=== PATIENT | female | born 1955 | race Caucasian/White ===

== ENCOUNTER 2023-09-21 13:45 | Outpatient (RCR) | payer MEDICARE, OTHER, SELFPAY ==
[2023-09-07 13:05] VITALS: BP 151/63; PULSE 63; RESP 18; TEMP 36.3; BMI 30.2
--- NOTE | 2023-09-08 09:27 | WC ---
PHOTO 09/07/23 (I) LEFT MEDIAL ANKLE
--- NOTE | 2023-09-08 19:37 | HP.PCM_ITS ---
History of Present Illness Date of Service: 09/07/23 Chief Complaint: Open ulceration of the left medial supra-malleolar area History of Wound: This is a 68-year-old female who presented with an ulceration of the left medial supra-malleolar area. Ulceration has been present since April 12, 2023. The ulceration occurred spontaneously, with no history of trauma. The patient has not previously had an ulceration at this site in the past. She was seen and evaluated by [facility], where an Unna boot was placed for a total of 1 week. With no significant improvement was appreciated, the patient was referred for further evaluation at the [facility]. The patient denies a history of deep vein thrombosis, though has a history of pulmonary embolism in 2017. She was treated by means of systemic anticoagulation at that time, though is not curr ently anticoagulated. Patient is not active, though she is ambulatory. She spends a good portion of each day sitting idlely. She claims to sleep on a flat mattress at night. The patient is of relatively normal body habitus, with a BMI of 30.2. The patient denies a history of diabetes mellitus, congestive heart failure, myocardial infarction, cerebrovascular accident, pulmonary disease, renal disease, and thyroid disease. [facility] Medical History Chronic venous insufficiency of lower extremity Venous stasis ulcer of ankle with fat layer exposed without varicose veins Mejia phlebectatica paraplantaris Hyperpigmentation Cardiac arrhythmia Home Medications ?Medication ?Instructions ?Recorded ?Last Taken ?Type metoprolol tartrate 25 mg tablet 25 mg PO BID 09/07/23 Unknown History multivit with min-folic acid PO 09/07/23 Unknown History Allergy/AdvReac Type Severity Reaction Status Date / Time povidone-iodine (From Allergy Other Verified 09/07/23 13:03 Betadine) Sulfa (Sulfonamide Allergy Other Verified 09/07/23 13:03 Antibiotics) Surgical History History of cataract surgery History of total left knee replacement History of repair of hiatal hernia Social History Smoking Status: Never smoker Vital Signs Vital Signs Vital Signs: Weight Weight: 165 lb Body Mass Index (BMI) 30.2 Physical Exam Const alert, oriented x3, no apparent distress, average body habitus and well nourished Constitutional Narrative: The patient's BMI is 30.2 General Appearance: cooperative, comfortable, well kempt and well developed Orientation / Consciousness: awake, oriented to person, oriented to place and oriented to time HEENT normocephalic and head/scalp atraumatic Head and Scalp: normal to inspection, normocephalic and atraumatic Face and Sinus: normal facial exam Nose: external nose normal External Ear: external ears normal Eyes EOMs intact bilaterally and conjunctivae normal General Eye: normal appearance of both eyes Neck full ROM Resp normal respiratory effort, normal air movement, no retractions and no use of accessory muscles Effort and Inspection: able to speak in complete sentences Extremity no calf tenderness General Extremity: Negative for clubbing or cyanosis Skin Wound Narrative: An ulceration is noted in the left medial supra-malleolar area. The ulceration is full-thickness in nature, with extension into the subcutaneous tissue. There is no sign of infection or cellulitis. Dimensions are documented elsewhere. The ulcer bed demonstrates predominantly pink and healthy granulation tissue. Hemosiderin staining and lipodermatosclerosis are noted bilaterally in the medial supra-malleolar areas. Mejia phlebectatica is noted bilaterally as well at ankle level. Neuro oriented x3, CN's II-XII intact bilaterally, moves all extremities, no focal motor deficits and no sensory deficits noted Sensorium / Orientation: awake, alert, oriented to person, oriented to place, oriented to time and orientation impaired Psych Appearance: grossly normal and appropriate Attitude: calm Activity / Motor Behavior: appropriate eye contact Speech: normal speech Mood & Affect: euthymic mood Thought Process: normal thought process Thought Content: normal thought content Attention / Concentration: attention grossly intact Debridement Note Debridement Note Wound debrided: Left medial supra-malleolar ulceration Laterality: Left Type of Debridement: Excisional debridement Anesthesia Used: 5% Lidocaine Gel Depth: Down to and including healthy tissue and in the subcutaneous layer Percentage of wound debrided: 100 Instrument Used: 5mm curette Tissue Removed: Bioburden and nonviable tissue Severity: Fat Layer Exposed Amount of bleeding with debridement: Mild Bleeding Controlled with: Compression and gauze Patient tolerated procedure: Patient tolerated procedure well Post-Debridement Measurements and Additional Note: Post-Debridement Measurements/Treatment WC - Nurse 1 - General Ulcer Assessment Start: 09/07/23 13:05 Freq: Status: Active Protocol: LYNETTE Activity Type Activity Date Activity User E-sign Co-sign Detail Recorded Client Recorded Date Recorded By Document 09/07/23 13:05 KW ; 09/07/23 13:14 KW 09/07/23 13:05 WC - Today's Visit Information Type of service Initial Visit Arrival Mode Ambulatory Accompanied by SISTER Patient Identification Verified (Name & Yes ) Height and Weight Height 5 ft 2 in Weight 165 lb Weight in Pounds 165.0 lbs Weight Measurement Method Estimated by Patient Body Mass Index (BMI) 30.2 BMI Classification Obese BSA - Michael 1.76 Vital Signs Temperature (97.8 F-99.1 F) 97.4 F L Temperature Source Temporal Pulse Rate (60-100) 63 Pulse Location Monitor Respiratory Rate (12-18) 18 Respiratory rate source Observation Oxygen Delivery Method Room Air Blood Pressure (90/60-120/80) 151/63 H Blood Pressure Mean 92 Source Monitor Position Semi-Fowlers Blood Pressure Location Left Arm History Since Last Visit- (Skip if this is Patient's initial visit) Left Footwear Regular Shoe Right Footwear Regular Shoe Pain Scale: 0-10 Numeric Is Patient Pain Free? Yes Lower Extremity Assessment/ Foot Assessment/ Toe Nail Assessment Right -Posterior Tibial Palpable Yes -Posterior Tibial Doppler Multiphasic -Dorsalis Pedis Palpable Yes -Dorsalis Pedis Doppler Multiphasic -Thick No -Discolored No -Deformed Yes Left -Posterior Tibial Palpable Yes -Posterior Tibial Doppler Multiphasic -Dorsalis Pedis Palpable Yes -Dorsalis Pedis Doppler Multiphasic -Thick No -Discolored No -Deformed Yes Communication Assessment Preferred language [place] Veterinary Technician Required No Able to Read Yes Able to Write Yes Communication Tools None Caregiver Communication Skills No Impairment Impairment Right Hearing Abillity Normal Left Hearing Abillity Normal Visual Assistive Devices Glasses Teaching Assessment Preferences Verbal,Written, Demonstration Barriers to Learning None Readiness To Learn Excellent Willingness to Engage in Self Management High Activies Readiness to Engage in Self Management High Activities Anxiety Level Calm Cooperation Cooperative Perception Coherent Interest in Health Problem Asks Questions Education Importance Acknowledges Need Does Patient Smoke tobacco or other No substances Smoking Status Never smoker Is Patient Diabetic No Functional Assessment Recent Decline in Ability to Perform Denies Any Declines Culture/Pentecostalism/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 Manager Embalmer Funeral Director to contact place of caodaism No WC - Nurse 1 - General Ulcer Measurement Start: 09/07/23 13:05 Freq: Status: Active Protocol: Activity Type Activity Date Activity User E-sign Co-sign Detail Recorded Client Recorded Date Recorded By Document 09/07/23 13:05 KW ; 09/07/23 13:14 KW 09/07/23 13:05 Wound Center Nurse 1 #1 LT MED ANKLE -Current Size (cm) - Length 0.5 -Current Size (cm) - Width 0.3 -Current Size (cm) - Depth 0.1 -Total Square Cm 0.15 -Date of Last Picture (Recall this 09/07/23 field) -Exudate Amt Small -Exudate Type Serosanguineous -Wound Margin Distinct, Outline Attached -Granulation Amt Large (67-100%) -Granulation Quality Red -Texture (Glenys-wound Skin Appearance) Assessed -Moisture (Glenys-wound Skin Appearance) Assessed -Color (Glenys-wound Skin Appearance) Assessed -Temperature (Glenys-wound Skin No Abnormality Appearance) (Pt Warm) -Ulcer Cleansing Rinsed/ Irrigated with Saline -Foul Odor after Cleansing No -Anesthetic Used 5% Lidocaine Gel Right Calf (cm) 34.6 Right Ankle (cm) 19.5 Left Calf (cm) 34.2 Left Ankle (cm) 20.2 WC - Nurse 2 - General Ulcer CM Notes Start: 09/07/23 13:05 Freq: Status: Active Protocol: Activity Type Activity Date Activity User E-sign Co-sign Detail Recorded Client Recorded Date Recorded By Document 09/07/23 13:26 DS 1 09/07/23 13:34 DS 09/07/23 13:26 Wound Center Nurse 2 #1 LT MED ANKLE -Time 13:31 -Correct Patient Yes -Correct Side, Site, Position Yes -Correct Procedure Yes -Procedure Performed Yes -Type of Procedure Debridement -Clinical Debridement Subcutaneous -Tissue Removed Subcutaneous -Post Debridement (cm) - Length 1.0 -Post Debridement (cm) - Width 0.6 -Post Debridement (cm) - Depth 0.2 -Total Square (Post) (cm) 0.60 -Area of Debridement (cm) - Length 1.0 -Area of Debridement (cm) - Width 0.6 -Total Square (Area) (cm) 0.60 -Wound/Ulcer Outcome Not Healed -Bleeding Controlled with Pressure -Treatment Response Procedure Tolerated Well -Debridement - Subq, 1st 20sq cm Yes Pain Scale: 0-10 Numeric Is Patient Pain Free? No left lower leg -Description Sharp -Intensity 7 -Duration (hours) Acute -Pain Behavior Moaning, Guarding, Irritability, Withdrawal from Touch -Pain Aggravating Factors Debridement -Alleviating Factors/Interventions Will continue to monitor, Patient denies need for intervention -Comments lidocaine and cetacaine to wound location - Nurse 3 - General Ulcer D/C NN Start: 09/07/23 13:05 Freq: Status: Active Protocol: Activity Type Activity Date Activity User E-sign Co-sign Detail Recorded Client Recorded Date Recorded By Document 09/07/23 14:11 RB wound 09/07/23 14:12 RB 09/07/23 14:11 Wound Care Center Nurse 3 #1 LT MED ANKLE -Ulcer Cleansing Rinsed/ Irrigated with Saline -Primary Dressing Applied C Hydrogel ($) -Primary Dressing Covered/Secured with Dry Gauze, Secured with Tape Right -Tubular Bandage Double Layer -Size of Tubigrip Used Size D -Size D ($) 2 Left -Tubular Bandage Double Layer -Size of Tubigrip Used Size D -Size D ($) 2 Treatment Response Procedure Tolerated Well Pain Scale: 0-10 Numeric Is Patient Pain Free? Yes Teaching: Wound Center Compression Wraps & Stockings -Person Taught Patient,Family -Teaching Method Discussion -Response to teaching Return demonstration, Verbalize understanding Dressing Your Wound -Person Taught Patient,Family -Teaching Method Discussion, Demonstration -Response to teaching Verbalize understanding WC - Visit Discharge Discharge Condition Stable Ambulatory Status Ambulatory Transportation Private Auto Medication Reconcilliation completed & No provided to patient/care provider Clinical Summary of Care Provided Yes Charges/Coding Multi Select Codes Visit Charges Office Visit/Consults: 11027 OV L4 New 45 min Integumentary Integumentary CPT Codes: 25947 Leyda subq tissue 20 sq cm/< Assessment/Plan Assessment/Plan (1) Venous stasis ulcer of ankle with fat layer exposed without varicose veins: CODE(S): I87.2 - Venous insufficiency (chronic) (peripheral); L97.302 - Non-pressure chronic ulcer of unspecified ankle with fat layer exposed QUALIFIERS: Laterality: left Qualified Code(s): I87.2 - Venous insufficiency (chronic) (peripheral); L97.322 - Non-pressure chronic ulcer of left ankle with fat layer exposed (2) Chronic venous insufficiency of lower extremity: CODE(S): I87.2 - Venous insufficiency (chronic) (peripheral) (3) Mejia phlebectatica paraplantaris: CODE(S): R09.89 - Other specified symptoms and signs involving the circulatory and respiratory systems (4) Hyperpigmentation: CODE(S): L81.9 - Disorder of pigmentation, unspecified (5) Cardiac arrhythmia: CODE(S): I49.9 - Cardiac arrhythmia, unspecified (6) History of repair of hiatal hernia: CODE(S): Z98.890 - Other specified postprocedural states; Z87.19 - Personal history of other diseases of the digestive system (7) History of total left knee replacement: CODE(S): Z96.652 - Presence of left artificial knee joint (8) History of cataract surgery: CODE(S): Z98.49 - Cataract extraction status, unspecified eye PLAN: Plan This is a 68-year-old female who presented with an ulceration near the left medial malleolus, located in the supra-malleolar area. The ulceration has been present for approximately 5 months. By history and appearances, the ulceration appears to be due to chronic venous disease. The ulceration is associated with nearby stigmata of chronic venous disease. A lengthy discussion has been undertaken with the patient as to the appropriate means of conservative care. Patient has been advised to elevate her lower extremities is much as possible, during both nighttime and daytime hours. Elevation is to be to heart level, or higher. She is to continue sleeping on a flat mattress at night. Activity has been encouraged. Prolonged, idle sitting has been discouraged the patient's weight appears to be appropriate. We are to implement compression to the lower extremities by means of Tubigrip's of 20 to 30 mmHg compression. Ultimately, the patient will need long-term compression to the lower extremities by means of graduated compression stockings. We are to implement the use of collagen hydrogel topically to the ulceration in the distal left lower extremity. The collagen hydrogel is to be applied topically on a daily basis. The patient has been instructed in the appropriate means of application. Patient is to return in 1 week for reevaluation. Total time: 48 minutes
[2023-09-14 13:18] VITALS: BP 136/72; PULSE 57; RESP 18; TEMP 36.9; BMI 30.2
--- NOTE | 2023-09-14 13:57 | PCM.WC.HP ---
History of Present Illness Date of Service: 09/14/23 Chief Complaint: Open ulceration of the left medial supra-malleolar area History of Wound: This is a 68-year-old female who presented with an ulceration of the left medial supra-malleolar area. The ulceration had been present since April 12, 2023. The ulceration occurred spontaneously, with no history of trauma. The patient has not previously had an ulceration at this site in the past. She was seen and evaluated by [facility], where an Unna boot was placed for a total of 1 week. With no significant improvement was appreciated, the patient was referred for further evaluation at the [facility]. The patient denies a history of deep vein thrombosis, though has a history of pulmonary embolism in 2017. She was treated by means of systemic anticoagulation at that time, though not currently anticoagulated. The patient is not active, though she is ambulatory. She spends a good portion of each day sitting idlely. She claims to sleep on a flat mattress at night. The patient is of relatively normal body habitus, with a BMI of 30.2. The patient denied a history of diabetes mellitus, congestive heart failure, myocardial infarction, cerebrovascular accident, pulmonary disease, renal disease, and thyroid disease. REPLACED BY [facility] Medical History Chronic venous insufficiency of lower extremity Venous stasis ulcer of ankle with fat layer exposed without varicose veins Mejia phlebectatica paraplantaris Hyperpigmentation Cardiac arrhythmia Home Medications ?Medication ?Instructions ?Recorded ?Last Taken ?Type metoprolol tartrate 25 mg tablet 25 mg PO BID 09/07/23 Unknown History multivit with min-folic acid PO 09/07/23 Unknown History Allergy/AdvReac Type Severity Reaction Status Date / Time povidone-iodine (From Allergy Other Verified 09/07/23 13:03 Betadine) Sulfa (Sulfonamide Allergy Other Verified 09/07/23 13:03 Antibiotics) Surgical History History of cataract surgery History of total left knee replacement History of repair of hiatal hernia Social History Smoking Status: Never smoker Vital Signs Vital Signs Vital Signs: 09/14/23 13:18 Temperature 98.4 F Temperature Source Temporal Pulse Rate 57 L Respiratory Rate 18 Blood Pressure 136/72 H Blood Pressure Mean 93 Blood Pressure Source Monitor Blood Pressure Position Semi-Fowlers Blood Pressure Location Left Arm Weight Weight: 165 lb Body Mass Index (BMI) 30.2 Physical Exam Const alert, oriented x3, no apparent distress, average body habitus and well nourished Constitutional Narrative: The patient's BMI is 30.2 General Appearance: cooperative, comfortable, well kempt and well developed Orientation / Consciousness: awake, oriented to person, oriented to place and oriented to time HEENT normocephalic and head/scalp atraumatic Head and Scalp: normal to inspection, normocephalic and atraumatic Face and Sinus: normal facial exam Nose: external nose normal External Ear: external ears normal Eyes EOMs intact bilaterally and conjunctivae normal General Eye: normal appearance of both eyes Neck full ROM Resp normal respiratory effort, normal air movement, no retractions and no use of accessory muscles Effort and Inspection: able to speak in complete sentences Extremity no calf tenderness General Extremity: Negative for clubbing or cyanosis Skin Wound Narrative: An ulceration is noted in the left medial supra-malleolar area. The ulceration is full-thickness in nature, with extension into the subcutaneous tissue. There is no sign of infection or cellulitis. Dimensions are documented elsewhere. The ulcer bed demonstrates predominantly pink and healthy granulation tissue. Hemosiderin staining and lipodermatosclerosis are noted bilaterally in the medial supra-malleolar areas. Mejia phlebectatica is noted bilaterally as well at ankle level. No significant swelling is noted. Neuro oriented x3, CN's II-XII intact bilaterally, moves all extremities, no focal motor deficits and no sensory deficits noted Sensorium / Orientation: awake, alert, oriented to person, oriented to place, oriented to time and orientation impaired Psych Appearance: grossly normal and appropriate Attitude: calm Activity / Motor Behavior: appropriate eye contact Speech: normal speech Mood & Affect: euthymic mood Thought Process: normal thought process Thought Content: normal thought content Attention / Concentration: attention grossly intact Debridement Note Debridement Note Wound debrided: Left medial supra-malleolar ulceration Laterality: Left Type of Debridement: Excisional debridement Anesthesia Used: 5% Lidocaine Gel and Cetacaine Depth: Down to and including healthy tissue and in the subcutaneous layer Percentage of wound debrided: 100 Instrument Used: 3mm curette Tissue Removed: Bioburden and nonviable tissue Severity: Fat Layer Exposed Amount of bleeding with debridement: Mild Bleeding Controlled with: Compression and gauze Patient tolerated procedure: Patient tolerated procedure well Post-Debridement Measurements and Additional Note: Post-Debridement Measurements/Treatment WC - Nurse 1 - General Ulcer Assessment Start: 09/07/23 13:05 Freq: Status: Active Protocol: LYNETTE Activity Type Activity Date Activity User E-sign Co-sign Detail Recorded Client Recorded Date Recorded By Document 09/07/23 13:05 KW ; 09/07/23 13:14 KW Document 09/14/23 13:18 RB wound 09/14/23 13:24 RB 09/07/23 09/14/23 13:05 13:18 WC - Today's Visit Information Type of service Initial Visit Follow-up 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 (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 ) Arrival Mode Ambulatory Ambulatory Transfer Assistance None Accompanied by SISTER Patient Identification Verified (Name & Yes Yes ) Patient Requires Transmission-Based No Precautions Height and Weight Height 5 ft 2 in Weight 165 lb Weight in Pounds 165.0 lbs Weight Measurement Method Estimated by Patient Body Mass Index (BMI) 30.2 30.2 BMI Classification Obese Obese BSA - Michael 1.76 Vital Signs Temperature (97.8 F-99.1 F) 97.4 F L 98.4 F Temperature Source Temporal Temporal Pulse Rate (60-100) 63 57 L Pulse Location Monitor Monitor Respiratory Rate (12-18) 18 18 Respiratory rate source Observation Observation Oxygen Delivery Method Room Air Blood Pressure (90/60-120/80) 151/63 H 136/72 H Blood Pressure Mean 92 93 Source Monitor Monitor Position Semi-Fowlers Semi-Fowlers Blood Pressure Location Left Arm Left Arm History Since Last Visit- (Skip if this is Patient's initial visit) Have you changed medications since your No last visit? Any new allergies or adverse reactions No Had a fall/change in ADL's that may No increase risk of falls Signs or symptoms of abuse and/or No neglect since last visit Have you been in the hospital since your No last visit? Has dressing in place as prescribed Yes Has compression in place as prescribed No Has offloadiing in place as prescribed No Experienced any changes in pain level or No management Left Footwear Regular Shoe Right Footwear Regular Shoe Pain Scale: 0-10 Numeric Is Patient Pain Free? Yes No left lower leg -Description Aching -Intensity 7 -Pain Behavior Withdrawal from Touch -Pain Aggravating Factors ADL's,Exercise/ Activity, Walking -Alleviating Factors/Interventions None Lower Extremity Assessment/ Foot Assessment/ Toe Nail Assessment Right -Posterior Tibial Palpable Yes -Posterior Tibial Doppler Multiphasic -Dorsalis Pedis Palpable Yes -Dorsalis Pedis Doppler Multiphasic -Thick No -Discolored No -Deformed Yes Left -Posterior Tibial Palpable Yes -Posterior Tibial Doppler Multiphasic -Dorsalis Pedis Palpable Yes -Dorsalis Pedis Doppler Multiphasic -Thick No -Discolored No -Deformed Yes Communication Assessment Preferred language Nigerian Warehouse Administrative Assistant Required No Able to Read Yes Able to Write Yes Communication Tools None Caregiver Communication Skills No Impairment Impairment Right Hearing Abillity Normal Left Hearing Abillity Normal Visual Assistive Devices Glasses Teaching Assessment Preferences Verbal,Written, Demonstration Barriers to Learning None Readiness To Learn Excellent Willingness to Engage in Self Management High Activies Readiness to Engage in Self Management High Activities Anxiety Level Calm Cooperation Cooperative Perception Coherent Interest in Health Problem Asks Questions Education Importance Acknowledges Need Does Patient Smoke tobacco or other No substances Smoking Status Never smoker Is Patient Diabetic No Functional Assessment Recent Decline in Ability to Perform Denies Any Declines Culture/Yazidi/Hostess Party Sales Representative Cultural/Yazidi Needs that may affect No Treatment Plan Would you allow our hospital alarm installer to No meet you for the purpose of spiritual/ emotional support? Hostess Party Sales Representative to contact place of jewish No WC - Nurse 1 - General Ulcer Measurement Start: 09/07/23 13:05 Freq: Status: Active Protocol: Activity Type Activity Date Activity User E-sign Co-sign Detail Recorded Client Recorded Date Recorded By Document 09/07/23 13:05 KW ; 09/07/23 13:14 KW Document 09/14/23 13:18 RB wound 09/14/23 13:24 RB 09/07/23 09/14/23 13:05 13:18 Wound Center Nurse 1 #1 LT MED ANKLE -Combined with other wound No -Current Size (cm) - Length 0.5 1.5 -Current Size (cm) - Width 0.3 0.6 -Current Size (cm) - Depth 0.1 0.1 -Total Square Cm 0.15 0.90 -Date of Last Picture (Recall this 09/07/23 field) -Tunneling No -Undermining/Tunneling No -Circular Undermining No -Exudate Amt Small Medium -Exudate Type Serosanguineous Serosanguineous -Wound Margin Distinct, Distinct, Outline Outline Attached Attached -Granulation Amt Large (67-100%) Medium (34-66%) -Granulation Quality [place] Air -Slough/Fibrin Yes -Necrosis Amt Medium (34-66%) -Necrotic Tissue Type Adherent Slough -Structure Exposed N/A -Texture (Glenys-wound Skin Appearance) Assessed Assessed -Moisture (Glenys-wound Skin Appearance) Assessed Assessed -Color (Glenys-wound Skin Appearance) Assessed Hemosiderin Staining -Temperature ([place]ys-wound Skin No Abnormality No Abnormality Appearance) (Pt Warm) (Pt Warm) -Tenderness on Palpation (Glenys-wound No Skin Appearance) -Ulcer Cleansing Rinsed/ Wound Cleanser Irrigated with Saline -Foul Odor after Cleansing No No -Anesthetic Used 5% Lidocaine 5% Lidocaine Gel Gel Lower Limb Edema Present Yes Right Calf (cm) 34.6 Right Ankle (cm) 19.5 Left Calf (cm) 34.2 34.8 Left Ankle (cm) 20.2 21 WC - Nurse 2 - General Ulcer CM Notes Start: 09/07/23 13:05 Freq: Status: Active Protocol: Activity Type Activity Date Activity User E-sign Co-sign Detail Recorded Client Recorded Date Recorded By Document 09/07/23 13:26 DS 1 09/07/23 13:34 DS Document 09/14/23 13:37 DS 1 09/14/23 13:40 DS 09/07/23 09/14/23 13:26 13:37 Wound Center Nurse 2 #1 LT MED ANKLE -Time 13:31 13:38 -Correct Patient Yes Yes -Correct Side, Site, Position Yes Yes -Correct Procedure Yes Yes -Procedure Performed Yes Yes -Type of Procedure Debridement Debridement -Clinical Debridement Subcutaneous Subcutaneous -Tissue Removed Subcutaneous Subcutaneous -Post Debridement (cm) - Length 1.0 0.7 -Post Debridement (cm) - Width 0.6 0.5 -Post Debridement (cm) - Depth 0.2 0.2 -Total Square (Post) (cm) 0.60 0.35 -Area of Debridement (cm) - Length 1.0 0.7 -Area of Debridement (cm) - Width 0.6 0.5 -Total Square (Area) (cm) 0.60 0.35 -Tunneling No -Undermining/Tunneling No -Circular Undermining No -Wound/Ulcer Outcome Not Healed Not Healed -Bleeding Controlled with Pressure Pressure -Treatment Response Procedure Procedure Tolerated Well Tolerated Well -Debridement - Subq, 1st 20sq cm Yes Yes Pain Scale: 0-10 Numeric Is Patient Pain Free? No No left lower leg -Description Sharp Aching -Intensity 7 -Duration (hours) Acute Acute -Pain Behavior Moaning, Guarding, Irritability, Withdrawal from Touch -Pain Aggravating Factors Debridement Debridement -Alleviating Factors/Interventions Will continue Will continue to monitor, to monitor, Patient denies Emotional need for Support intervention -Comments lidocaine and cetacaine to wound location WC - Nurse 3 - General Ulcer D/C NN Start: 09/07/23 13:05 Freq: Status: Active Protocol: Activity Type Activity Date Activity User E-sign Co-sign Detail Recorded Client Recorded Date Recorded By Document 09/07/23 14:11 RB wound 09/07/23 14:12 RB Document 09/14/23 13:54 RB wound 09/14/23 13:55 RB 09/07/23 09/14/23 14:11 13:54 Wound Care Center Nurse 3 #1 LT MED ANKLE -Ulcer Cleansing Rinsed/ Rinsed/ Irrigated with Irrigated with Saline Saline -Primary Dressing Applied C Hydrogel ($) -Other Dressing hydrogel -Primary Dressing Covered/Secured with Dry Gauze, Dry Gauze, Secured with Secured with Tape Tape Right -Tubular Bandage Double Layer -Size of Tubigrip Used Size D -Size D ($) 2 Left -Tubular Bandage Double Layer -Size of Tubigrip Used Size D -Size D ($) 2 -Other pt own stockings at home Treatment Response Procedure Procedure Tolerated Well Tolerated Well Pain Scale: 0-10 Numeric Is Patient Pain Free? Yes No left lower leg -Description Aching -Intensity 8 -Duration (hours) Acute -Pain Behavior Withdrawal from Touch -Pain Aggravating Factors ADL's -Alleviating Factors/Interventions None Teaching: Wound Center Compression Wraps & Stockings -Person Taught Patient,Family -Teaching Method Discussion -Response to teaching Return demonstration, Verbalize understanding Dressing Your Wound -Person Taught Patient,Family -Teaching Method Discussion, Demonstration -Response to teaching Verbalize understanding WC - Visit Discharge Discharge Condition Stable Stable Ambulatory Status Ambulatory Ambulatory Transportation Private Auto Private Auto Medication Reconcilliation completed & No No provided to patient/care provider Clinical Summary of Care Provided Yes Yes Assessment/Plan Assessment/Plan (1) Venous stasis ulcer of ankle with fat layer exposed without varicose veins: CODE(S): I87.2 - Venous insufficiency (chronic) (peripheral); L97.302 - Non-pressure chronic ulcer of unspecified ankle with fat layer exposed QUALIFIERS: Laterality: left Qualified Code(s): I87.2 - Venous insufficiency (chronic) (peripheral); L97.322 - Non-pressure chronic ulcer of left ankle with fat layer exposed (2) Chronic venous insufficiency of lower extremity: CODE(S): I87.2 - Venous insufficiency (chronic) (peripheral) (3) Mejia phlebectatica paraplantaris: CODE(S): R09.89 - Other specified symptoms and signs involving the circulatory and respiratory systems (4) Hyperpigmentation: CODE(S): L81.9 - Disorder of pigmentation, unspecified (5) Cardiac arrhythmia: CODE(S): I49.9 - Cardiac arrhythmia, unspecified (6) History of repair of hiatal hernia: CODE(S): Z98.890 - Other specified postprocedural states; Z87.19 - Personal history of other diseases of the digestive system (7) History of total left knee replacement: CODE(S): Z96.652 - Presence of left artificial knee joint (8) History of cataract surgery: CODE(S): Z98.49 - Cataract extraction status, unspecified eye PLAN: Plan This is a 68-year-old female who presented with an ulceration near the left medial malleolus, located in the supra-malleolar area. The ulceration had been present for approximately 5 months. By history and appearances, the ulceration appears to be due to chronic venous disease. The ulceration is associated with nearby stigmata of chronic venous disease. A lengthy discussion has been undertaken with the patient as to the appropriate means of conservative care. Patient has been advised to elevate her lower extremities is much as possible, during both nighttime and daytime hours. Elevation is to be to heart level, or higher. She is to continue sleeping on a flat mattress at night. Activity has been encouraged. Prolonged, idle sitting has been discouraged. Despite the advisement to elevate her lower extremities and to use compression on her lower extremities, the patient indicates that she has failed to do so. She has been noncompliant with recommendations. Once again, these recommendations have been reiterated. The patient's weight appears to be appropriate. We are to continue compression to the lower extremities by means of Tubigrip's of 20 to 30 mmHg compression. Ultimately, the patient will need long-term compression to the lower extremities by means of graduated compression stockings. We are to continue the use of collagen hydrogel topically to the ulceration in the distal left lower extremity. The collagen hydrogel is to be applied topically on a daily basis. The patient has been instructed in the appropriate means of application. The patient is to return in 1 week for reevaluation. Total time: 24 minutes
--- NOTE | 2023-09-14 14:06 | HP.PCM_ITS ---
History of Present Illness Date of Service: 09/14/23 Chief Complaint: Open ulceration of the left medial supra-malleolar area History of Wound: This is a 68-year-old female who presented with an ulceration of the left medial supra-malleolar area. The ulceration had been present since April 12, 2023. The ulceration occurred spontaneously, with no history of trauma. The patient has not previously had an ulceration at this site in the past. She was seen and evaluated by [facility], where an Unna boot was placed for a total of 1 week. With no significant improvement was appreciated, the patient was referred for further evaluation at the [facility]. The patient denies a history of deep vein thrombosis, though has a history of pulmonary embolism in 2017. She was treated by means of systemic anticoagulation at that time, though not currently anticoagulated. The patient is not active, though she is ambulatory. She spends a good portion of each day sitting idlely. She claims to sleep on a flat mattress at night. The patient is of relatively normal body habitus, with a BMI of 30.2. The patient denied a history of diabetes mellitus, congestive heart failure, myocardial infarction, cerebrovascular accident, pulmonary disease, r enal disease, and thyroid disease. [facility] Medical History Chronic venous insufficiency of lower extremity Venous stasis ulcer of ankle with fat layer exposed without varicose veins Mejia phlebectatica paraplantaris Hyperpigmentation Cardiac arrhythmia Home Medications ?Medication ?Instructions ?Recorded ?Last Taken ?Type metoprolol tartrate 25 mg tablet 25 mg PO BID 09/07/23 Unknown History multivit with min-folic acid PO 09/07/23 Unknown History Allergy/AdvReac Type Severity Reaction Status Date / Time povidone-iodine (From Allergy Other Verified 09/07/23 13:03 Betadine) Sulfa (Sulfonamide Allergy Other Verified 09/07/23 13:03 Antibiotics) Surgical History History of cataract surgery History of total left knee replacement History of repair of hiatal hernia Social History Smoking Status: Never smoker Vital Signs Vital Signs Vital Signs: 09/14/23 13:18 Temperature 98.4 F Temperature Source Temporal Pulse Rate 57 L Respiratory Rate 18 Blood Pressure 136/72 H Blood Pressure Mean 93 Blood Pressure Source Monitor Blood Pressure Position Semi-Fowlers Blood Pressure Location Left Arm Weight Weight: 165 lb Body Mass Index (BMI) 30.2 Physical Exam Const alert, oriented x3, no apparent distress, average body habitus and well nourished Constitutional Narrative: The patient's BMI is 30.2 General Appearance: cooperative, comfortable, well kempt and well developed Orientation / Consciousness: awake, oriented to person, oriented to place and oriented to time HEENT normocephalic and head/scalp atraumatic Head and Scalp: normal to inspection, normocephalic and atraumatic Face and Sinus: normal facial exam Nose: external nose normal External Ear: external ears normal Eyes EOMs intact bilaterally and conjunctivae normal General Eye: normal appearance of both eyes Neck full ROM Resp normal respiratory effort, normal air movement, no retractions and no use of accessory muscles Effort and Inspection: able to speak in complete sentences Extremity no calf tenderness General Extremity: Negative for clubbing or cyanosis Skin Wound Narrative: An ulceration is noted in the left medial supra-malleolar area. The ulceration is full-thickness in nature, with extension into the subcutaneous tissue. There is no sign of infection or cellulitis. Dimensions are documented elsewhere. The ulcer bed demonstrates predominantly pink and healthy granulation tissue. Hemosiderin staining and lipodermatosclerosis are noted bilaterally in the medial supra-malleolar areas. Mejia phlebectatica is noted bilaterally as well at ankle level. No significant swelling is noted. Neuro oriented x3, CN's II-XII intact bilaterally, moves all extremities, no focal motor deficits and no sensory deficits noted Sensorium / Orientation: awake, alert, oriented to person, oriented to place, oriented to time and orientation impaired Psych Appearance: grossly normal and appropriate Attitude: calm Activity / Motor Behavior: appropriate eye contact Speech: normal speech Mood & Affect: euthymic mood Thought Process: normal thought process Thought Content: normal thought content Attention / Concentration: attention grossly intact Debridement Note Debridement Note Wound debrided: Left medial supra-malleolar ulceration Laterality: Left Type of Debridement: Excisional debridement Anesthesia Used: 5% Lidocaine Gel and Cetacaine Depth: Down to and including healthy tissue and in the subcutaneous layer Percentage of wound debrided: 100 Instrument Used: 3mm curette Tissue Removed: Bioburden and nonviable tissue Severity: Fat Layer Exposed Amount of bleeding with debridement: Mild Bleeding Controlled with: Compression and gauze Patient tolerated procedure: Patient tolerated procedure well Post-Debridement Measurements and Additional Note: Post-Debridement Measurements/Treatment - Nurse 1 - General Ulcer Assessment Start: 09/07/23 13:05 Freq: Status: Active Protocol: LYNETTE Activity Type Activity Date Activity User E-sign Co-sign Detail Recorded Client Recorded Date Recorded By Document 09/07/23 13:05 KW ; 09/07/23 13:14 KW Document 09/14/23 13:18 RB wound 09/14/23 13:24 RB 09/07/23 09/14/23 13:05 13:18 - Today's Visit Information Type of service Initial Visit Follow-up Visit (Physician/TOUCH UP EDGER ) Arrival Mode Ambulatory Ambulatory Transfer Assistance None Accompanied by SISTER Patient Identification Verified (Name & Yes Yes ) Patient Requires Transmission-Based No Precautions Height and Weight Height 5 ft 2 in Weight 165 lb Weight in Pounds 165.0 lbs Weight Measurement Method Estimated by Patient Body Mass Index (BMI) 30.2 30.2 BMI Classification Obese Obese BSA - Michael 1.76 Vital Signs Temperature (97.8 F-99.1 F) 97.4 F L 98.4 F Temperature Source Temporal Temporal Pulse Rate (60-100) 63 57 L Pulse Location Monitor Monitor Respiratory Rate (12-18) 18 18 Respiratory rate source Observation Observation Oxygen Delivery Method Room Air Blood Pressure (90/60-120/80) 151/63 H 136/72 H Blood Pressure Mean 92 93 Source Monitor Monitor Position Semi-Fowlers Semi-Fowlers Blood Pressure Location Left Arm Left Arm History Since Last Visit- (Skip if this is Patient's initial visit) Have you changed medications since your No last visit? Any new allergies or adverse reactions No Had a fall/change in ADL's that may No increase risk of falls Signs or symptoms of abuse and/or No neglect since last visit Have you been in the hospital since your No last visit? Has dressing in place as prescribed Yes Has compression in place as prescribed No Has offloadiing in place as prescribed No Experienced any changes in pain level or No management Left Footwear Regular Shoe Right Footwear Regular Shoe Pain Scale: 0-10 Numeric Is Patient Pain Free? Yes No left lower leg -Description Aching -Intensity 7 -Pain Behavior Withdrawal from Touch -Pain Aggravating Factors ADL's,Exercise/ Activity, Walking -Alleviating Factors/Interventions None Lower Extremity Assessment/ Foot Assessment/ Toe Nail Assessment Right -Posterior Tibial Palpable Yes -Posterior Tibial Doppler Multiphasic -Dorsalis Pedis Palpable Yes -Dorsalis Pedis Doppler Multiphasic -Thick No -Discolored No -Deformed Yes Left -Posterior Tibial Palpable Yes -Posterior Tibial Doppler Multiphasic -Dorsalis Pedis Palpable Yes -Dorsalis Pedis Doppler Multiphasic -Thick No -Discolored No -Deformed Yes Communication Assessment Preferred language [place] Sucker Machine Operator Required No Able to Read Yes Able to Write Yes Communication Tools None Caregiver Communication Skills No Impairment Impairment Right Hearing Abillity Normal Left Hearing Abillity Normal Visual Assistive Devices Glasses Teaching Assessment Preferences Verbal,Written, Demonstration Barriers to Learning None Readiness To Learn Excellent Willingness to Engage in Self Management High Activies Readiness to Engage in Self Management High Activities Anxiety Level Calm Cooperation Cooperative Perception Coherent Interest in Health Problem Asks Questions Education Importance Acknowledges Need Does Patient Smoke tobacco or other No substances Smoking Status Never smoker Is Patient Diabetic No Functional Assessment Recent Decline in Ability to Perform Denies Any Declines Culture/Anabaptism/Neon Tube Bender Cultural/Anabaptism Needs that may affect No Treatment Plan Would you allow our hospital montessori toddler teacher to No meet you for the purpose of spiritual/ emotional support? Neon Tube Bender to contact place of hinduism No WC - Nurse 1 - General Ulcer Measurement Start: 09/07/23 13:05 Freq: Status: Active Protocol: Activity Type Activity Date Activity User E-sign Co-sign Detail Recorded Client Recorded Date Recorded By Document 09/07/23 13:05 KW ; 09/07/23 13:14 KW Document 09/14/23 13:18 RB wound 09/14/23 13:24 RB 09/07/23 09/14/23 13:05 13:18 Wound Center Nurse 1 #1 LT MED ANKLE -Combined with other wound No -Current Size (cm) - Length 0.5 1.5 -Current Size (cm) - Width 0.3 0.6 -Current Size (cm) - Depth 0.1 0.1 -Total Square Cm 0.15 0.90 -Date of Last Picture (Recall this 07/16/24 field) -Tunneling No -Undermining/Tunneling No -Circular Undermining No -Exudate Amt Small Medium -Exudate Type Serosanguineous Serosanguineous -Wound Margin Distinct, Distinct, Outline Outline Attached Attached -Granulation Amt Large (67-100%) Medium (34-66%) -Granulation Quality Red Byars -Slough/Fibrin Yes -Necrosis Amt Medium (34-66%) -Necrotic Tissue Type Adherent Slough -Structure Exposed N/A -Texture (Glenys-wound Skin Appearance) Assessed Assessed -Moisture (Glenys-wound Skin Appearance) Assessed Assessed -Color (Glenys-wound Skin Appearance) Assessed Hemosiderin Staining -Temperature (Glenys-wound Skin No Abnormality No Abnormality Appearance) (Pt Warm) (Pt Warm) -Tenderness on Palpation (Glenys-wound No Skin Appearance) -Ulcer Cleansing Rinsed/ Wound Cleanser Irrigated with Saline -Foul Odor after Cleansing No No -Anesthetic Used 5% Lidocaine 5% Lidocaine Gel Gel Lower Limb Edema Present Yes Right Calf (cm) 34.6 Right Ankle (cm) 19.5 Left Calf (cm) 34.2 34.8 Left Ankle (cm) 20.2 21 WC - Nurse 2 - General Ulcer CM Notes Start: 09/07/23 13:05 Freq: Status: Active Protocol: Activity Type Activity Date Activity User E-sign Co-sign Detail Recorded Client Recorded Date Recorded By Document 09/07/23 13:26 DS 1 09/07/23 13:34 DS Document 09/14/23 13:37 DS 1 09/14/23 13:40 DS 09/07/23 09/14/23 13:26 13:37 Wound Center Nurse 2 #1 LT MED ANKLE -Time 13:31 13:38 -Correct Patient Yes Yes -Correct Side, Site, Position Yes Yes -Correct Procedure Yes Yes -Procedure Performed Yes Yes -Type of Procedure Debridement Debridement -Clinical Debridement Subcutaneous Subcutaneous -Tissue Removed Subcutaneous Subcutaneous -Post Debridement (cm) - Length 1.0 0.7 -Post Debridement (cm) - Width 0.6 0.5 -Post Debridement (cm) - Depth 0.2 0.2 -Total Square (Post) (cm) 0.60 0.35 -Area of Debridement (cm) - Length 1.0 0.7 -Area of Debridement (cm) - Width 0.6 0.5 -Total Square (Area) (cm) 0.60 0.35 -Tunneling No -Undermining/Tunneling No -Circular Undermining No -Wound/Ulcer Outcome Not Healed Not Healed -Bleeding Controlled with Pressure Pressure -Treatment Response Procedure Procedure Tolerated Well Tolerated Well -Debridement - Subq, 1st 20sq cm Yes Yes Pain Scale: 0-10 Numeric Is Patient Pain Free? No No left lower leg -Description Sharp Aching -Intensity 7 -Duration (hours) Acute Acute -Pain Behavior Moaning, Guarding, Irritability, Withdrawal from Touch -Pain Aggravating Factors Debridement Debridement -Alleviating Factors/Interventions Will continue Will continue to monitor, to monitor, Patient denies Emotional need for Support intervention -Comments lidocaine and cetacaine to wound location - Nurse 3 - General Ulcer D/C NN Start: 09/07/23 13:05 Freq: Status: Active Protocol: Activity Type Activity Date Activity User E-sign Co-sign Detail Recorded Client Recorded Date Recorded By Document 09/07/23 14:11 RB wound 09/07/23 14:12 RB Document 09/14/23 13:54 RB wound 09/14/23 13:55 RB 09/07/23 09/14/23 14:11 13:54 Wound Care Center Nurse 3 #1 LT MED ANKLE -Ulcer Cleansing Rinsed/ Rinsed/ Irrigated with Irrigated with Saline Saline -Primary Dressing Applied C Hydrogel ($) -Other Dressing hydrogel -Primary Dressing Covered/Secured with Dry Gauze, Dry Gauze, Secured with Secured with Tape Tape Right -Tubular Bandage Double Layer -Size of Tubigrip Used Size D -Size D ($) 2 Left -Tubular Bandage Double Layer -Size of Tubigrip Used Size D -Size D ($) 2 -Other pt own stockings at home Treatment Response Procedure Procedure Tolerated Well Tolerated Well Pain Scale: 0-10 Numeric Is Patient Pain Free? Yes No left lower leg -Description Aching -Intensity 8 -Duration (hours) Acute -Pain Behavior Withdrawal from Touch -Pain Aggravating Factors ADL's -Alleviating Factors/Interventions None Teaching: Wound Center Compression Wraps & Stockings -Person Taught Patient,Family -Teaching Method Discussion -Response to teaching Return demonstration, Verbalize understanding Dressing Your Wound -Person Taught Patient,Family -Teaching Method Discussion, Demonstration -Response to teaching Verbalize understanding WC - Visit Discharge Discharge Condition Stable Stable Ambulatory Status Ambulatory Ambulatory Transportation Private Auto Private Auto Medication Reconcilliation completed & No No provided to patient/care provider Clinical Summary of Care Provided Yes Yes Charges/Coding Procedures Integumentary [id number]: [id number] Leyda subq tissue 20 sq cm/< Assessment/Plan Assessment/Plan (1) Venous stasis ulcer of ankle with fat layer exposed without varicose veins: CODE(S): I87.2 - Venous insufficiency (chronic) (peripheral); L97.302 - Non-pressure chronic ulcer of unspecified ankle with fat layer exposed QUALIFIERS: Laterality: left Qualified Code(s): I87.2 - Venous insufficiency (chronic) (peripheral); L97.322 - Non-pressure chronic ulcer of left ankle with fat layer exposed (2) Chronic venous insufficiency of lower extremity: CODE(S): I87.2 - Venous insufficiency (chronic) (peripheral) (3) Mejia phlebectatica paraplantaris: CODE(S): R09.89 - Other specified symptoms and signs involving the circulatory and respiratory systems (4) Hyperpigmentation: CODE(S): L81.9 - Disorder of pigmentation, unspecified (5) Cardiac arrhythmia: CODE(S): I49.9 - Cardiac arrhythmia, unspecified (6) History of repair of hiatal hernia: CODE(S): Z98.890 - Other specified postprocedural states; Z87.19 - Personal history of other diseases of the digestive system (7) History of total left knee replacement: CODE(S): Z96.652 - Presence of left artificial knee joint (8) History of cataract surgery: CODE(S): Z98.49 - Cataract extraction status, unspecified eye PLAN: Plan This is a 68-year-old female who presented with an ulceration near the left medial malleolus, located in the supra-malleolar area. The ulceration had been present for approximately 5 months. By history and appearances, the ulceration appears to be due to chronic venous disease. The ulceration is associated with nearby stigmata of chronic venous disease. A lengthy discussion has been undertaken with the patient as to the appropriate means of conservative care. Patient has been advised to elevate her lower extremities is much as possible, during both nighttime and daytime hours. Elevation is to be to heart level, or higher. She is to continue sleeping on a flat mattress at night. Activity has been encouraged. Prolonged, idle sitting has been discouraged. Despite the advisement to elevate her lower extremities and to use compression on her lower extremities, the patient indicates that she has failed to do so. She has been noncompliant with recommendations. Once again, these recommendations have been reiterated. The patient's weight appears to be appropriate. We are to continue compression to the lower extremities by means of Tubigrip's of 20 to 30 mmHg compression. Ultimately, the patient will need long-term compression to the lower extremities by means of graduated compression stockings. We are to continue the use of collagen hydrogel topically to the ulceration in the distal left lower extremity. The collagen hydrogel is to be applied topically on a daily basis. The patient has been instructed in the appropriate means of application. The patient is to return in 1 week for reevaluation. Total time: 24 minutes
[2023-09-21 13:55] VITALS: BP 134/60; PULSE 66; RESP 18; TEMP 35.8; BMI 30.2
--- NOTE | 2023-09-22 12:24 | PCM.WC.HP ---
History of Present Illness Date of Service: 09/21/23 Chief Complaint: Open ulceration of the left medial supra-malleolar area History of Wound: This is a 68-year-old female who presented with an ulceration of the left medial supra-malleolar area. The ulceration had been present since April 12, 2023. The ulceration occurred spontaneously, with no history of trauma. The patient has not previously had an ulceration at this site in the past. She was seen and evaluated by [facility], where an Unna boot was placed for a total of 1 week. When no significant improvement was appreciated, the patient was referred to the [facility] for further evaluation and management. The patient denies a history of deep vein thrombosis, though has a history of pulmonary embolism in 2017. She was treated by means of systemic anticoagulation at that time, though is not currently anticoagulated. The patient is not active, though she is ambulatory. She spends a good portion of each day sitting idlely. She claims to sleep on a flat mattress at night. The patient is of relatively normal body habitus, with a BMI of 30.2. The patient denied a history of diabetes mellitus, congestive heart failure, myocardial infarction, cerebrovascular accident, pulmonary disease, renal disease, and thyroid disease. [facility] Medical History Chronic venous insufficiency of lower extremity Venous stasis ulcer of ankle with fat layer exposed without varicose veins Mejia phlebectatica paraplantaris Hyperpigmentation Cardiac arrhythmia Home Medications ?Medication ?Instructions ?Recorded ?Last Taken ?Type metoprolol tartrate 25 mg tablet 25 mg PO BID 09/07/23 Unknown History multivit with min-folic acid PO 09/07/23 Unknown History Allergy/AdvReac Type Severity Reaction Status Date / Time povidone-iodine (From Allergy Other Verified 09/07/23 13:03 Betadine) Sulfa (Sulfonamide Allergy Other Verified 09/07/23 13:03 Antibiotics) Surgical History History of cataract surgery History of total left knee replacement History of repair of hiatal hernia Social History Smoking Status: Never smoker Vital Signs Vital Signs Vital Signs: 09/21/23 13:55 Temperature 96.4 F L Temperature Source Temporal Pulse Rate 66 Respiratory Rate 18 Blood Pressure 134/60 H Blood Pressure Mean 84 Blood Pressure Source Monitor Blood Pressure Position Semi-Fowlers Blood Pressure Location Left Arm Oxygen Delivery Method Room Air Weight Weight: 165 lb Body Mass Index (BMI) 30.2 Physical Exam Const alert, oriented x3, no apparent distress, average body habitus and well nourished Constitutional Narrative: The patient's BMI is 30.2 General Appearance: cooperative, comfortable, well kempt and well developed Orientation / Consciousness: awake, oriented to person, oriented to place and oriented to time HEENT normocephalic and head/scalp atraumatic Head and Scalp: normal to inspection, normocephalic and atraumatic Face and Sinus: normal facial exam Nose: external nose normal External Ear: external ears normal Eyes EOMs intact bilaterally and conjunctivae normal General Eye: normal appearance of both eyes Neck full ROM Resp normal respiratory effort, normal air movement, no retractions and no use of accessory muscles Effort and Inspection: able to speak in complete sentences Extremity no calf tenderness General Extremity: Negative for clubbing or cyanosis Skin Wound Narrative: An ulceration is noted in the left medial supra-malleolar area. The ulceration is full-thickness in nature, with extension into the subcutaneous tissue. There is no sign of infection or cellulitis. The ulceration is smaller in size, and dimensions are documented elsewhere. The ulcer bed demonstrates predominantly pink and healthy granulation tissue. Hemosiderin staining and lipodermatosclerosis are noted bilaterally in the medial supra-malleolar areas. Mejia phlebectatica is noted bilaterally as well at ankle level. No significant swelling is noted. Neuro oriented x3, CN's II-XII intact bilaterally, moves all extremities, no focal motor deficits and no sensory deficits noted Sensorium / Orientation: awake, alert, oriented to person, oriented to place, oriented to time and orientation impaired Psych Appearance: grossly normal and appropriate Attitude: calm Activity / Motor Behavior: appropriate eye contact Speech: normal speech Mood & Affect: euthymic mood Thought Process: normal thought process Thought Content: normal thought content Attention / Concentration: attention grossly intact Debridement Note Debridement Note Wound debrided: Left medial supra-malleolar ulceration Laterality: Left Type of Debridement: Excisional debridement Anesthesia Used: 5% Lidocaine Gel and Cetacaine Depth: Down to and including healthy tissue and in the subcutaneous layer Percentage of wound debrided: 100 Instrument Used: 3mm curette Tissue Removed: Bioburden and nonviable tissue Severity: Fat Layer Exposed Amount of bleeding with debridement: Mild Bleeding Controlled with: Compression and gauze Patient tolerated procedure: Patient tolerated procedure well Post-Debridement Measurements and Additional Note: Post-Debridement Measurements/Treatment WC - Nurse 1 - General Ulcer Assessment Start: 09/07/23 13:05 Freq: Status: Active Protocol: LYNETTE Activity Type Activity Date Activity User E-sign Co-sign Detail Recorded Client Recorded Date Recorded By Document 09/07/23 13:05 KW ; 09/07/23 13:14 KW Document 09/14/23 13:18 RB wound 09/14/23 13:24 RB Document 09/21/23 13:55 KW gj 09/21/23 14:07 KW 09/07/23 09/14/23 09/21/23 13:05 13:18 13:55 - Today's Visit Information Type of service Initial Visit Follow-up Visit Follow-up Visit (Physician/PIECE HAND (Physician/PIECE HAND ) ) Arrival Mode Ambulatory Ambulatory Ambulatory Transfer Assistance None Accompanied by SISTER SISTER Patient Identification Verified (Name & Yes Yes Yes ) Patient Requires Transmission-Based No Precautions Height and Weight Height 5 ft 2 in Weight 165 lb Weight in Pounds 165.0 lbs Weight Measurement Method Estimated by Patient Body Mass Index (BMI) 30.2 30.2 30.2 BMI Classification Obese Obese Obese BSA - Michael 1.76 Vital Signs Temperature (97.8 F-99.1 F) 97.4 F L 98.4 F 96.4 F L Temperature Source Temporal Temporal Temporal Pulse Rate (60-100) 63 57 L 66 Pulse Location Monitor Monitor Monitor Respiratory Rate (12-18) 18 18 18 Respiratory rate source Observation Observation Observation Oxygen Delivery Method Room Air Room Air Blood Pressure (90/60-120/80) 151/63 H 136/72 H 134/60 H Blood Pressure Mean 92 93 84 Source Monitor Monitor Monitor Position Semi-Fowlers Semi-Fowlers Semi-Fowlers Blood Pressure Location Left Arm Left Arm Left Arm History Since Last Visit- (Skip if this is Patient's initial visit) Have you changed medications since your No No last visit? Any new allergies or adverse reactions No No Had a fall/change in ADL's that may No No increase risk of falls Signs or symptoms of abuse and/or No No neglect since last visit Have you been in the hospital since your No No last visit? Has dressing in place as prescribed Yes Yes Has compression in place as prescribed No Has offloadiing in place as prescribed No N/A Experienced any changes in pain level or No No management Left Footwear Regular Shoe Regular Shoe Right Footwear Regular Shoe Regular Shoe Pain Scale: 0-10 Numeric Is Patient Pain Free? Yes No Yes left lower leg -Description Aching -Intensity 7 -Pain Behavior Withdrawal from Touch -Pain Aggravating Factors ADL's,Exercise/ Activity, Walking -Alleviating Factors/Interventions None Lower Extremity Assessment/ Foot Assessment/ Toe Nail Assessment Right -Posterior Tibial Palpable Yes -Posterior Tibial Doppler Multiphasic -Dorsalis Pedis Palpable Yes -Dorsalis Pedis Doppler Multiphasic -Thick No -Discolored No -Deformed Yes Left -Posterior Tibial Palpable Yes -Posterior Tibial Doppler Multiphasic -Dorsalis Pedis Palpable Yes -Dorsalis Pedis Doppler Multiphasic -Thick No -Discolored No -Deformed Yes Communication Assessment Preferred language Turkmen Supervisor Spinning Required No Able to Read Yes Able to Write Yes Communication Tools None Caregiver Communication Skills No Impairment Impairment Right Hearing Abillity Normal Left Hearing Abillity Normal Visual Assistive Devices Glasses Teaching Assessment Preferences Verbal,Written, Demonstration Barriers to Learning None Readiness To Learn Excellent Willingness to Engage in Self Management High Activies Readiness to Engage in Self Management High Activities Anxiety Level Calm Cooperation Cooperative Perception Coherent Interest in Health Problem Asks Questions Education Importance Acknowledges Need Does Patient Smoke tobacco or other No substances Smoking Status Never smoker Is Patient Diabetic No Functional Assessment Recent Decline in Ability to Perform Denies Any Declines Culture/Sabianism/Salesforce Business Analyst Cultural/Sabianism Needs that may affect No Treatment Plan Would you allow our hospital project management it specialist to No meet you for the purpose of spiritual/ emotional support? Salesforce Business Analyst to contact place of gnosticism No WC - Nurse 1 - General Ulcer Measurement Start: 09/07/23 13:05 Freq: Status: Active Protocol: Activity Type Activity Date Activity User E-sign Co-sign Detail Recorded Client Recorded Date Recorded By Document 09/07/23 13:05 KW ; 09/07/23 13:14 KW Document 09/14/23 13:18 RB wound 07/23/24 13:24 RB Document 09/21/23 13:55 KW gj 09/21/23 14:07 KW 09/07/23 09/14/23 09/21/23 13:05 13:18 13:55 Wound Center Nurse 1 #1 LT MED ANKLE -Combined with other wound No -Current Size (cm) - Length 0.5 1.5 0.7 -Current Size (cm) - Width 0.3 0.6 0.2 -Current Size (cm) - Depth 0.1 0.1 0.1 -Total Square Cm 0.15 0.90 0.14 -Date of Last Picture (Recall this 09/07/23 09/21/23 field) -Epithelialization Medium 34-66% -Tunneling No -Undermining/Tunneling No -Circular Undermining No -Exudate Amt Small Medium Small -Exudate Type Serosanguineous Serosanguineous Serosanguineous -Wound Margin Distinct, Distinct, Distinct, Outline Outline Outline Attached Attached Attached -Granulation Amt Large (67-100%) Medium (34-66%) Large (67-100%) -Granulation Quality [place] -Slough/Fibrin Yes -Necrosis Amt Medium (34-66%) Small (1-33%) -Necrotic Tissue Type Adherent Slough Adherent Slough -Structure Exposed N/A -Texture (Glenys-wound Skin Appearance) Assessed Assessed Assessed -Moisture (Glenys-wound Skin Appearance) Assessed Assessed Assessed -Color (Glenys-wound Skin Appearance) Assessed Hemosiderin Assessed Staining -Temperature (Glenys-wound Skin No Abnormality No Abnormality No Abnormality Appearance) (Pt Warm) (Pt Warm) (Pt Warm) -Tenderness on Palpation (Glenys-wound No No Skin Appearance) -Ulcer Cleansing Rinsed/ Wound Cleanser Rinsed/ Irrigated with Irrigated with Saline Saline -Foul Odor after Cleansing No No -Anesthetic Used 5% Lidocaine 5% Lidocaine 5% Lidocaine Gel Gel Gel Lower Limb Edema Present Yes Right Calf (cm) 34.6 Right Ankle (cm) 19.5 Left Calf (cm) 34.2 34.8 Left Ankle (cm) 20.2 21 WC - Nurse 2 - General Ulcer CM Notes Start: 09/07/23 13:05 Freq: Status: Active Protocol: Activity Type Activity Date Activity User E-sign Co-sign Detail Recorded Client Recorded Date Recorded By Document 09/07/23 13:26 DS 1 09/07/23 13:34 DS Document 09/14/23 13:37 DS 1 09/14/23 13:40 DS Document 09/21/23 14:55 JF 0000 09/21/23 14:57 JF 09/07/23 09/14/23 09/21/23 13:26 13:37 14:55 Wound Center Nurse 2 #1 LT MED ANKLE -Time 13:31 13:38 14:55 -Correct Patient Yes Yes Yes -Correct Side, Site, Position Yes Yes Yes -Correct Procedure Yes Yes Yes -Procedure Performed Yes Yes Yes -Type of Procedure Debridement Debridement Debridement -Clinical Debridement Subcutaneous Subcutaneous Subcutaneous -Tissue Removed Subcutaneous Subcutaneous Subcutaneous -Post Debridement (cm) - Length 1.0 0.7 0.7 -Post Debridement (cm) - Width 0.6 0.5 0.5 -Post Debridement (cm) - Depth 0.2 0.2 0.1 -Total Square (Post) (cm) 0.60 0.35 0.35 -Area of Debridement (cm) - Length 1.0 0.7 0.7 -Area of Debridement (cm) - Width 0.6 0.5 0.5 -Total Square (Area) (cm) 0.60 0.35 0.35 -Tunneling No No -Undermining/Tunneling No No -Circular Undermining No No -Wound/Ulcer Outcome Not Healed Not Healed Not Healed -Ulcer Cleansing Rinsed/ Irrigated with Saline -Foul Odor after Cleansing No -Bioengineered Tissue No -Bleeding Controlled with Pressure Pressure Pressure -Treatment Response Procedure Procedure Procedure Tolerated Well Tolerated Well Tolerated Well -Debridement - Subq, 1st 20sq cm Yes Yes Yes Pain Scale: 0-10 Numeric Is Patient Pain Free? No No Yes left lower leg -Description Sharp Aching -Intensity 7 -Duration (hours) Acute Acute -Pain Behavior Moaning, Guarding, Irritability, Withdrawal from Touch -Pain Aggravating Factors Debridement Debridement -Alleviating Factors/Interventions Will continue Will continue to monitor, to monitor, Patient denies Emotional need for Support intervention -Comments lidocaine and cetacaine to wound location WC - Nurse 3 - General Ulcer D/C NN Start: 09/07/23 13:05 Freq: Status: Active Protocol: Activity Type Activity Date Activity User E-sign Co-sign Detail Recorded Client Recorded Date Recorded By Document 07/16/24 14:11 RB wound 09/07/23 14:12 RB Document 09/14/23 13:54 RB wound 09/14/23 13:55 RB Document 09/21/23 15:03 RB wound 09/21/23 15:04 RB 09/07/23 09/14/23 09/21/23 14:11 13:54 15:03 Wound Care Center Nurse 3 #1 LT MED ANKLE -Ulcer Cleansing Rinsed/ Rinsed/ Rinsed/ Irrigated with Irrigated with Irrigated with Saline Saline Saline -Primary Dressing Applied C Hydrogel ($) C Hydrogel ($) -Other Dressing hydrogel -Primary Dressing Covered/Secured with Dry Gauze, Dry Gauze, Dry Gauze,Dry Secured with Secured with Gauze & Roll Tape Tape Gauze,Secured with Tape Right -Tubular Bandage Double Layer -Size of Tubigrip Used Size D -Size D ($) 2 Left -Tubular Bandage Double Layer -Size of Tubigrip Used Size D -Size D ($) 2 -Other pt own stockings at home Treatment Response Procedure Procedure Procedure Tolerated Well Tolerated Well Tolerated Well Pain Scale: 0-10 Numeric Is Patient Pain Free? Yes No Yes left lower leg -Description Aching -Intensity 8 -Duration (hours) Acute -Pain Behavior Withdrawal from Touch -Pain Aggravating Factors ADL's -Alleviating Factors/Interventions None Teaching: Wound Center Compression Wraps & Stockings -Person Taught Patient,Family -Teaching Method Discussion -Response to teaching Return demonstration, Verbalize understanding Dressing Your Wound -Person Taught Patient,Family -Teaching Method Discussion, Demonstration -Response to teaching Verbalize understanding WC - Visit Discharge Discharge Condition Stable Stable Stable Ambulatory Status Ambulatory Ambulatory Ambulatory Transportation Private Auto Private Auto Private Auto Medication Reconcilliation completed & No No No provided to patient/care provider Clinical Summary of Care Provided Yes Yes Yes Charges/Coding Procedures Integumentary [id number]: [id number] Leyda subq tissue 20 sq cm/< Assessment/Plan Assessment/Plan (1) Venous stasis ulcer of ankle with fat layer exposed without varicose veins: CODE(S): I87.2 - Venous insufficiency (chronic) (peripheral); L97.302 - Non-pressure chronic ulcer of unspecified ankle with fat layer exposed QUALIFIERS: Laterality: left Qualified Code(s): I87.2 - Venous insufficiency (chronic) (peripheral); L97.322 - Non-pressure chronic ulcer of left ankle with fat layer exposed (2) Chronic venous insufficiency of lower extremity: CODE(S): I87.2 - Venous insufficiency (chronic) (peripheral) (3) Mejia phlebectatica paraplantaris: CODE(S): R09.89 - Other specified symptoms and signs involving the circulatory and respiratory systems (4) Hyperpigmentation: CODE(S): L81.9 - Disorder of pigmentation, unspecified (5) Cardiac arrhythmia: CODE(S): I49.9 - Cardiac arrhythmia, unspecified (6) History of repair of hiatal hernia: CODE(S): Z98.890 - Other specified postprocedural states; Z87.19 - Personal history of other diseases of the digestive system (7) History of total left knee replacement: CODE(S): Z96.652 - Presence of left artificial knee joint (8) History of cataract surgery: CODE(S): Z98.49 - Cataract extraction status, unspecified eye PLAN: Plan This is a 68-year-old female who presented with an ulceration near the left medial malleolus, located in the supra-malleolar area. The ulceration had been present for approximately 5 months. By history and appearances, the ulceration appears to be due to chronic venous disease. The ulceration is associated with nearby stigmata of chronic venous disease. A lengthy discussion has been undertaken with the patient as to the appropriate means of conservative care. The patient has been advised to elevate her lower extremities as much as possible, during both nighttime and daytime hours. Elevation is to be to heart level, or higher. She is to continue sleeping on a flat mattress at night. Activity has been encouraged. Prolonged, idle sitting has been discouraged. Despite the advisement to elevate her lower extremities and to use compression on her lower extremities, it appears as though the patient has been only moderately compliant. Once again, these recommendations have been reiterated. The patient's weight appears to be appropriate. We are to continue compression to the lower extremities by means of Tubigrip's of 20 to 30 mmHg compression. Ultimately, the patient will need long-term compression to the lower extremities by means of graduated compression stockings or CircAid garments. She claims to possess Copper Top stockings, and inquires whether these will be adequate. She has been instructed to bring these with her at her next appointment for evaluation. We are to continue the use of collagen hydrogel topically to the ulceration in the distal left lower extremity. The collagen hydrogel is to be applied topically on a daily basis. The patient has been instructed in the appropriate means of application. The patient has reminded to maintain a diet of adequate nutrition. We are to obtain a venous duplex examination in the near future. Additionally, the patient has had recent blood work at the [facility], and a request will be made for a copy of the results. The patient is to return in 1 week for reevaluation. Total time: 25 minutes
--- NOTE | 2023-09-24 09:06 | WC ---
PHOTO 09/21/23 ANKLE
== END 2023-09-22 23:59 | disposition home or self-care (01) ==
LOC: WC 13:45
PROVIDERS: PCP Family Medicine; Referring Provider Dermatology Pediatric Dermatology; Visit Provider Surgery
DX: L97.322 Non-pressure chronic ulcer of left ankle with fat layer exposed (principal); I83.023 Varicose veins of left lower extremity with ulcer of ankle; I49.9 Cardiac arrhythmia, unspecified; R60.0 Localized edema; Z86.711 Personal history of pulmonary embolism; Z86.718 Personal history of other venous thrombosis and embolism; R09.89 Other specified symptoms and signs involving the circulatory and respiratory systems; Z87.19 Personal history of other diseases of the digestive system; Z79.899 Other long term (current) drug therapy
CPT/HCPCS: 11042; 99203; G0463

== ENCOUNTER 2023-10-19 14:00 | Outpatient (RCR) | payer MEDICARE, OTHER, SELFPAY ==
[2023-09-23 00:52] VITALS: BP 134/60; PULSE 66; RESP 18; TEMP 35.8; BMI 30.2
--- NOTE | 2023-09-24 12:54 | VDLE_ITS ---
Reason For Study: Venous Insufficiency RIGHT LEFT CFV is compressible, spontaneous, phasic, CFV is compressible, spontaneous, phasic, competent and demonstrates normal competent, and demonstrates normal augmentation. augmentation. FV is compressible, spontaneous, phasic, FV is compressible, spontaneous, phasic, competent and demonstrates normal competent and demonstrates normal augmentation. augmentation. POP V is compressible, spontaneous, phasic, POP V is compressible, phasic, and competent and demonstrates normal INCOMPETENT for greater than 1.0 second. augmentation. T/P Trunk is compressible. T/P Trunk is compressible. PTV is compressible. PTV is compressible. LT PerV is compressible. RT PerV is compressible. SFJ is competent and measures 0.73cm x 0.66 SFJ is competent and measures 0.53cm x 0.53 cm. cm. GSV proximal thigh measures 0.47cm x 0.50 cm. GSV proximal thigh measures 0.29cm x 0.28 cm. GSV at knee measures 0.34cmx 0.38 cm. GSV at knee measures 0.31cm x 0.32 cm. GSV above knee is competent. GSV above knee is competent. GSV below knee is INCOMPETENT for greater GSV below knee is INCOMPETENT for greater than 0.5 seconds. than 0.5 seconds. SSV proximal calf is INCOMPETENT for greater SSV proximal calf is INCOMPETENT for greater than 0.5 seconds and measures 0.65cm x 0.72 than 0.5 seconds and measures 0.17cm x 0.19 cm. cm. ASV proximal calf is INCOMPETENT for greater Procedure than 0.5 seconds and measures 0.33cm x 0.41 This is a venous duplex using B-mode, color cm. flow and spectral Doppler. ASV mid calf is INCOMPETENT for greater than Exam performed in department. 0.5 seconds and measures 0.28cm x 0.32 cm. A preliminary report was called and/or faxed to . VL/Venous Duplex US - Cedric Extrem Interpretation Summary Deep veins of the lower extremities are bilaterally patent and compressible seg mentally. There is no evidence of deep vein thrombosis on either side. Valvular competence appears in tact within the proximal deep venous system on the right . On the left, the popliteal vein is i ncompetent. The great saphenous veins appear bilaterally patent and compressible segmentally. Sapheno -femoral junctions are bilaterally competent . The right great saphenous vein appears competent ab ove the knee. The right great saphenous vein appears incompetent below the knee. The left great s aphenous vein appears competent above the knee. The left great saphenous vein appears incompetent bel ow the knee. Small saphenous veins are patent and incompetent bilaterally. The accessory saphenous vein in the left proximal calf is incompetent. The accessory saphenous vein in the left mid-calf is incompetent. Ordering Physician: Noah Apodaca Referring Physician: Mohinder Styles Performed By: Tori Murillo, RDCS, RVT
[2023-09-28 13:40] VITALS: BP 143/61; PULSE 67; RESP 18; TEMP 36.2; BMI 30.2
--- NOTE | 2023-09-29 10:46 | HP.PCM_ITS ---
History of Present Illness Date of Service: 09/28/23 Chief Complaint: Open ulceration of the left medial supra-malleolar area History of Wound: This is a 68-year-old female who presented with an ulceration of the left medial supra-malleolar area. The ulceration had been present since April 12, 2023. The ulceration occurred spontaneously, with no history of trauma. The patient has not previously had an ulceration at this site in the past. She was seen and evaluated by [facility], where an Unna boot was placed for a total of 1 week. When no significant improvement was appreciated, the patient was referred to the [facility] for further evaluation and management. The patient denies a history of deep vein thrombosis, though has a history of pulmonary embolism in 2017. She was treated by means of systemic anticoagulation at that time, though is not currently anticoagulated. The patient is not active, though she is ambulatory. She spends a good portion of each day sitting idlely. She claims to sleep on a flat mattress at night. The patient is of relatively normal body habitus, with a BMI of 30.2. The patient denied a history of diabetes mellitus, congestive heart failure, myocardial infarction, cerebrovascular accident, pu lmonary disease, renal disease, and thyroid disease. FOR[facility]LY [facility] Medical History Chronic venous insufficiency of lower extremity Venous stasis ulcer of ankle with fat layer exposed without varicose veins Mejia phlebectatica paraplantaris Hyperpigmentation Cardiac arrhythmia Home Medications ?Medication ?Instructions ?Recorded ?Last Taken ?Type metoprolol tartrate 25 mg tablet 25 mg PO BID 09/07/23 Unknown History multivit with min-folic acid PO 09/07/23 Unknown History Allergy/AdvReac Type Severity Reaction Status Date / Time povidone-iodine (From Allergy Other Verified 09/07/23 13:03 Betadine) Sulfa (Sulfonamide Allergy Other Verified 09/07/23 13:03 Antibiotics) Surgical History History of cataract surgery History of total left knee replacement History of repair of hiatal hernia Social History Smoking Status: Never smoker Vital Signs Vital Signs Vital Signs: 09/28/23 13:40 Temperature 97.2 F L Temperature Source Temporal Pulse Rate 67 Respiratory Rate 18 Blood Pressure 143/61 H Blood Pressure Mean 88 Blood Pressure Source Monitor Blood Pressure Position Semi-Fowlers Blood Pressure Location Left Arm Weight Weight: 165 lb Body Mass Index (BMI) 30.2 Physical Exam Const alert, oriented x3, no apparent distress, average body habitus and well nourished Constitutional Narrative: The patient's BMI is 30.2 General Appearance: cooperative, comfortable, well kempt and well developed Orientation / Consciousness: awake, oriented to person, oriented to place and oriented to time HEENT normocephalic and head/scalp atraumatic Head and Scalp: normal to inspection, normocephalic and atraumatic Face and Sinus: normal facial exam Nose: external nose normal External Ear: external ears normal Eyes EOMs intact bilaterally and conjunctivae normal General Eye: normal appearance of both eyes Neck full ROM Resp normal respiratory effort, normal air movement, no retractions and no use of accessory muscles Effort and Inspection: able to speak in complete sentences Extremity no calf tenderness General Extremity: Negative for clubbing or cyanosis Skin Wound Narrative: An ulceration is noted in the left medial supra-malleolar area. The ulceration is full-thickness in nature, with extension into the subcutaneous tissue. There is no sign of infection or cellulitis. The ulceration is slightly smaller in size, and dimensions are documented elsewhere. The ulcer bed demonstrates pink and healthy granulation tissue, though with a moderate amount of bioburden. Hemosiderin staining and lipodermatosclerosis surrounding the ulceration and are noted bilaterally in the medial supra-malleolar areas. Mejia phlebectatica is noted bilaterally as well at ankle level. No significant swelling is noted. Neuro oriented x3, CN's II-XII intact bilaterally, moves all extremities, no focal motor deficits and no sensory deficits noted Sensorium / Orientation: awake, alert, oriented to person, oriented to place, oriented to time and orientation impaired Psych Appearance: grossly normal and appropriate Attitude: calm Activity / Motor Behavior: appropriate eye contact Speech: normal speech Mood & Affect: euthymic mood Thought Process: normal thought process Thought Content: normal thought content Attention / Concentration: attention grossly intact Debridement Note Debridement Note Wound debrided: Left medial supra-malleolar ulceration Laterality: Left Type of Debridement: Excisional debridement Anesthesia Used: 5% Lidocaine Gel and Cetacaine Depth: Down to and including healthy tissue and in the subcutaneous layer Percentage of wound debrided: 100 Instrument Used: 3mm curette Tissue Removed: Bioburden and nonviable tissue Severity: Fat Layer Exposed Amount of bleeding with debridement: Mild Bleeding Controlled with: Compression and gauze Patient tolerated procedure: Patient tolerated procedure well Post-Debridement Measurements and Additional Note: Post-Debridement Measurements/Treatment JES - Nurse 1 - General Ulcer Assessment Start: 09/28/23 13:40 Freq: Status: Active Protocol: LYNETTE Activity Type Activity Date Activity User E-sign Co-sign Detail Recorded Client Recorded Date Recorded By Document 09/28/23 13:40 MELLY reyes 09/28/23 13:42 MELLY 09/28/23 13:40 WC - Today's Visit Information Type of service Follow-up Visit (Physician/ACTIVITIES DIRECTOR SCOUTING ) Arrival Mode Ambulatory Transfer Assistance None Patient Identification Verified (Name & Yes ) Patient Requires Transmission-Based No Precautions Height and Weight Body Mass Index (BMI) 30.2 BMI Classification Obese Vital Signs Temperature (97.8 F-99.1 F) 97.2 F L Temperature Source Temporal Pulse Rate (60-100) 67 Pulse Location Monitor Respiratory Rate (12-18) 18 Respiratory rate source Observation Blood Pressure (90/60-120/80) 143/61 H Blood Pressure Mean 88 Source Monitor Position Semi-Fowlers Blood Pressure Location Left Arm History Since Last Visit- (Skip if this is Patient's initial visit) Have you changed medications since your No last visit? Any new allergies or adverse reactions No Had a fall/change in ADL's that may No increase risk of falls Signs or symptoms of abuse and/or No neglect since last visit Have you been in the hospital since your No last visit? Has dressing in place as prescribed Yes Has compression in place as prescribed Yes Has offloadiing in place as prescribed No Experienced any changes in pain level or No management Pain Scale: 0-10 Numeric Is Patient Pain Free? Yes JES - Nurse 1 - General Ulcer Measurement Start: 09/28/23 13:40 Freq: Status: Active Protocol: Activity Type Activity Date Activity User E-sign Co-sign Detail Recorded Client Recorded Date Recorded By Document 09/28/23 13:40 MELLY reyes 09/28/23 13:42 RB 09/28/23 13:40 Wound Center Nurse 1 #1 LT MED ANKLE -Combined with other wound No -Current Size (cm) - Length 0.5 -Current Size (cm) - Width 0.3 -Current Size (cm) - Depth 0.1 -Total Square Cm 0.15 -Tunneling No -Undermining/Tunneling No -Circular Undermining No -Exudate Amt Small -Exudate Type Serosanguineous -Wound Margin Distinct, Outline Attached -Granulation Amt Medium (34-66%) -Granulation Quality Saxman -Slough/Fibrin Yes -Necrosis Amt Medium (34-66%) -Necrotic Tissue Type Adherent Slough -Structure Exposed N/A -Texture (Glenys-wound Skin Appearance) Assessed -Moisture (Glenys-wound Skin Appearance) Assessed -Color (Glenys-wound Skin Appearance) Hemosiderin Staining -Temperature (Glenys-wound Skin No Abnormality Appearance) (Pt Warm) -Tenderness on Palpation (Glenys-wound No Skin Appearance) -Ulcer Cleansing Wound Cleanser -Foul Odor after Cleansing No -Anesthetic Used 5% Lidocaine Gel Left Calf (cm) 33.5 Left Ankle (cm) 19.5 WC - Nurse 2 - General Ulcer CM Notes Start: 09/28/23 13:40 Freq: Status: Active Protocol: Activity Type Activity Date Activity User E-sign Co-sign Detail Recorded Client Recorded Date Recorded By Document 09/28/23 14:04 DS 1 09/28/23 14:06 DS 09/28/23 14:04 Wound Center Nurse 2 #1 LT MED ANKLE -Time 14:05 -Correct Patient Yes -Correct Side, Site, Position Yes -Correct Procedure Yes -Procedure Performed Yes -Type of Procedure Debridement -Clinical Debridement Subcutaneous -Tissue Removed Subcutaneous -Post Debridement (cm) - Length 0.6 -Post Debridement (cm) - Width 0.3 -Post Debridement (cm) - Depth 0.1 -Total Square (Post) (cm) 0.18 -Area of Debridement (cm) - Length 0.6 -Area of Debridement (cm) - Width 0.3 -Total Square (Area) (cm) 0.18 -Tunneling No -Undermining/Tunneling No -Circular Undermining No -Wound/Ulcer Outcome Not Healed -Bleeding Controlled with Pressure -Treatment Response Procedure Tolerated Well -Debridement - Subq, 1st 20sq cm Yes Pain Scale: 0-10 Numeric Is Patient Pain Free? No left lower leg -Description Sharp -Intensity 6 -Duration (hours) Acute -Pain Behavior Guarding, Grasping Site -Pain Aggravating Factors Debridement -Alleviating Factors/Interventions Will continue to monitor, Emotional Support WC - Nurse 3 - General Ulcer D/C NN Start: 09/28/23 13:40 Freq: Status: Active Protocol: Activity Type Activity Date Activity User E-sign Co-sign Detail Recorded Client Recorded Date Recorded By Document 09/28/23 14:44 KW kl 09/28/23 14:50 KW 09/28/23 14:44 Wound Care Center Nurse 3 #1 LT MED ANKLE -Other Dressing HYDROGEL -Primary Dressing Covered/Secured with Dry Gauze & Roll Gauze, Secured with Tape Pain Scale: 0-10 Numeric Is Patient Pain Free? Yes Charges/Coding Procedures Integumentary [id number]: [id number] Leyda subq tissue 20 sq cm/< Assessment/Plan Assessment/Plan (1) Venous stasis ulcer of ankle with fat layer exposed without varicose veins: CODE(S): I87.2 - Venous insufficiency (chronic) (peripheral); L97.302 - Non-pressure chronic ulcer of unspecified ankle with fat layer exposed QUALIFIERS: Laterality: left Qualified Code(s): I87.2 - Venous insufficiency (chronic) (peripheral); L97.322 - Non-pressure chronic ulcer of left ankle with fat layer exposed (2) Chronic venous insufficiency of lower extremity: CODE(S): I87.2 - Venous insufficiency (chronic) (peripheral) (3) Mejia phlebectatica paraplantaris: CODE(S): R09.89 - Other specified symptoms and signs involving the circulatory and respiratory systems (4) Hyperpigmentation: CODE(S): L81.9 - Disorder of pigmentation, unspecified (5) Cardiac arrhythmia: CODE(S): I49.9 - Cardiac arrhythmia, unspecified (6) History of repair of hiatal hernia: CODE(S): Z98.890 - Other specified postprocedural states; Z87.19 - Personal history of other diseases of the digestive system (7) History of total left knee replacement: CODE(S): Z96.652 - Presence of left artificial knee joint (8) History of cataract surgery: CODE(S): Z98.49 - Cataract extraction status, unspecified eye PLAN: Plan This is a 68-year-old female who presented with an ulceration near the left medial malleolus, located in the supra-malleolar area. The ulceration had been present for approximately 5 months. By history and appearances, the ulceration appears to be due to chronic venous disease. The ulceration is associated with nearby stigmata of chronic venous disease. A lengthy discussion has been undertaken with the patient as to the appropriate means of conservative care. The patient has been advised to elevate her lower extremities as much as possible, during both nighttime and daytime hours. Elevation is to be to heart level, or higher. She is to continue sleeping on a flat mattress at night. Activity has been encouraged. Prolonged, idle sitting has been discouraged. Despite the advisement to elevate her lower extremities and to use compression on her lower extremities, it appears as though the patient has been only moderately compliant. Once again, these recommendations have been reiterated. The patient's weight appears to be appropriate. We are to continue compression to the lower extremities by means of Tubigrip's of 20 to 30 mmHg compression. Ultimately, the patient will need long-term compression to the lower extremities by means of graduated compression stockings or CircAid garments. The patient has brought in her Copper Top stockings, as well as its packaging. There is no specification as to the degree of compression. Therefore, a prescription has been provided for graduated compression stockings of 20 to 30 mmHg compression, knee-high length. She has been advised to be fitted at a local medical supply store. The stockings are to be worn on a daily basis. We are to continue the use of collagen hydrogel topically to the ulceration in the distal left lower extremity. The collagen hydrogel is to be applied topically on a daily basis. The patient has been instructed in the appropriate means of application. The patient has reminded to maintain a diet of adequate nutrition. Venous duplex examination was performed on September 24, 2023, which revealed the following: The left popliteal vein is incompetent; the right great saphenous vein is incompetent below the knee; the left great saphenous vein is incompetent below the knee; small saphenous veins are incompetent bilaterally; accessory saphenous veins in the left proximal calf and the left mid calf are incompetent. The patient has had recent blood work at the [facility], and a request will be made for a copy of the results. The patient is to return in 2 weeks for reevaluation. Total time: 26 minutes
[2023-10-12 13:49] VITALS: BP 146/61; PULSE 72; RESP 18; TEMP 36.3; BMI 30.2
--- NOTE | 2023-10-12 15:58 | PCM.WC.HP ---
History of Present Illness Date of Service: 10/12/23 Chief Complaint: Open ulceration of the left medial supra-malleolar area History of Wound: This is a 68-year-old female who presented with an ulceration of the left medial supra-malleolar area. The ulceration had been present since April 12, 2023. The ulceration occurred spontaneously, with no history of trauma. The patient has not previously had an ulceration at this site in the past. She was seen and evaluated by [facility], where an Unna boot was placed for a total of 1 week. When no significant improvement was appreciated, the patient was referred to the [facility] for further evaluation and management. The patient denies a history of deep vein thrombosis, though has a history of pulmonary embolism in 2017. She was treated by means of systemic anticoagulation at that time, though is not currently anticoagulated. The patient is not active, though she is ambulatory. She spends a good portion of each day sitting idlely. She claims to sleep on a flat mattress at night. The patient is of relatively normal body habitus, with a BMI of 30.2. The patient denied a history of diabetes mellitus, congestive heart failure, myocardial infarction, cerebrovascular accident, pulmonary disease, renal disease, and thyroid disease. [facility] Medical History (Updated 10/12/23 @ 16:[address] Noah Apodaca MD) Prediabetes SVT (supraventricular tachycardia) Chronic venous insufficiency of lower extremity Venous stasis ulcer of ankle with fat layer exposed without varicose veins Mejia phlebectatica paraplantaris Hyperpigmentation Cardiac arrhythmia Home Medications ?Medication ?Instructions ?Recorded ?Last Taken ?Type metoprolol tartrate 25 mg tablet 25 mg PO BID 09/07/23 Unknown History multivit with min-folic acid PO 09/07/23 Unknown History Allergy/AdvReac Type Severity Reaction Status Date / Time povidone-iodine (From Allergy Other Verified 09/07/23 13:03 Betadine) Sulfa (Sulfonamide Allergy Other Verified 09/07/23 13:03 Antibiotics) Surgical History History of cataract surgery History of total left knee replacement History of repair of hiatal hernia Social History Smoking Status: Never smoker Vital Signs Vital Signs Vital Signs: 10/12/23 13:49 Temperature 97.3 F L Temperature Source Temporal Pulse Rate 72 Respiratory Rate 18 Blood Pressure 146/61 H Blood Pressure Mean 89 Blood Pressure Source Monitor Blood Pressure Position Semi-Fowlers Blood Pressure Location Left Arm Weight Weight: 165 lb Body Mass Index (BMI) 30.2 Physical Exam Const alert, oriented x3, no apparent distress, average body habitus and well nourished Constitutional Narrative: The patient's BMI is 30.2 General Appearance: cooperative, comfortable, well kempt and well developed Orientation / Consciousness: awake, oriented to person, oriented to place and oriented to time HEENT normocephalic and head/scalp atraumatic Head and Scalp: normal to inspection, normocephalic and atraumatic Face and Sinus: normal facial exam Nose: external nose normal External Ear: external ears normal Eyes EOMs intact bilaterally and conjunctivae normal General Eye: normal appearance of both eyes Neck full ROM Resp normal respiratory effort, normal air movement, no retractions and no use of accessory muscles Effort and Inspection: able to speak in complete sentences Extremity no calf tenderness General Extremity: Negative for clubbing or cyanosis Skin Wound Narrative: An ulceration is noted in the left medial supra-malleolar area. The ulceration is full-thickness in nature, with extension into the subcutaneous tissue. There is no sign of infection or cellulitis. The ulceration is slightly smaller in size, and dimensions are documented elsewhere. The ulcer bed demonstrates pink and healthy granulation tissue, though with a moderate amount of bioburden. Hemosiderin staining and lipodermatosclerosis surround the ulceration and are noted bilaterally in the medial supra-malleolar areas. Mejia phlebectatica is noted bilaterally as well at ankle level. No significant swelling is noted. Neuro oriented x3, CN's II-XII intact bilaterally, moves all extremities, no focal motor deficits and no sensory deficits noted Sensorium / Orientation: awake, alert, oriented to person, oriented to place, oriented to time and orientation impaired Psych Appearance: grossly normal and appropriate Attitude: calm Activity / Motor Behavior: appropriate eye contact Speech: normal speech Mood & Affect: euthymic mood Thought Process: normal thought process Thought Content: normal thought content Attention / Concentration: attention grossly intact Debridement Note Debridement Note Wound debrided: Left medial supra-malleolar ulceration Laterality: Left Type of Debridement: Excisional debridement Anesthesia Used: 5% Lidocaine Gel and Cetacaine Depth: Down to and including healthy tissue and in the subcutaneous layer Percentage of wound debrided: 100 Instrument Used: 3mm curette Tissue Removed: Bioburden and nonviable tissue Severity: Fat Layer Exposed Amount of bleeding with debridement: Mild Bleeding Controlled with: Compression and gauze Patient tolerated procedure: Patient tolerated procedure well Post-Debridement Measurements and Additional Note: Post-Debridement Measurements/Treatment - Nurse 1 - General Ulcer Assessment Start: 09/28/23 13:40 Freq: Status: Active Protocol: [employer]SAM[employer]KRISTIE Activity Type Activity Date Activity User E-sign Co-sign Detail Recorded Client Recorded Date Recorded By Document 09/28/23 13:40 RB [email or web address] 09/28/23 13:42 RB Document 10/12/23 13:49 KW [id number] 10/12/23 13:56 KW 09/28/23 10/12/23 13:40 13:49 - Today's Visit Information Type of service Follow-up Visit Follow-up Visit (Physician/SHIRT FINISHER (Physician/SHIRT FINISHER ) ) Arrival Mode Ambulatory Ambulatory Transfer Assistance None None Patient Identification Verified (Name & Yes Yes ) Patient Requires Transmission-Based No No Precautions Height and Weight Body Mass Index (BMI) 30.2 30.2 BMI Classification Obese Obese Vital Signs Temperature (97.8 F-99.1 F) 97.2 F L 97.3 F L Temperature Source Temporal Temporal Pulse Rate (60-100) 67 72 Pulse Location Monitor Monitor Respiratory Rate (12-18) 18 18 Respiratory rate source Observation Observation Blood Pressure (90/60-120/80) 143/61 H 146/61 H Blood Pressure Mean 88 89 Source Monitor Monitor Position Semi-Fowlers Semi-Fowlers Blood Pressure Location Left Arm Left Arm History Since Last Visit- (Skip if this is Patient's initial visit) Have you changed medications since your No No last visit? Any new allergies or adverse reactions No No Had a fall/change in ADL's that may No No increase risk of falls Signs or symptoms of abuse and/or No No neglect since last visit Have you been in the hospital since your No No last visit? Has dressing in place as prescribed Yes Yes Has compression in place as prescribed Yes No Has offloadiing in place as prescribed No No Experienced any changes in pain level or No No management Pain Scale: 0-10 Numeric Is Patient Pain Free? Yes Yes left lower leg -Description Aching -Intensity 6 -Duration (hours) Chronic -Pain Behavior Guarding -Pain Aggravating Factors Exercise/ Activity -Alleviating Factors/Interventions None WC - Nurse 1 - General Ulcer Measurement Start: 09/28/23 13:40 Freq: Status: Active Protocol: Activity Type Activity Date Activity User E-sign Co-sign Detail Recorded Client Recorded Date Recorded By Document 09/28/23 13:40 RB [email or web address] 09/28/23 13:42 RB Document 10/12/23 13:49 KW [id number] 10/12/23 13:56 KW 09/28/23 10/12/23 13:40 13:49 Wound Center Nurse 1 #1 LT MED ANKLE -Combined with other wound No No -Current Size (cm) - Length 0.5 0.2 -Current Size (cm) - Width 0.3 0.2 -Current Size (cm) - Depth 0.1 0.1 -Total Square Cm 0.15 0.04 -Photo Taken Yes -Tunneling No No -Undermining/Tunneling No No -Circular Undermining No No -Exudate Amt Small Medium -Exudate Type Serosanguineous Serosanguineous -Wound Margin Distinct, Distinct, Outline Outline Attached Attached -Granulation Amt Medium (34-66%) Medium (34-66%) -Granulation Quality [place] Hyper- granulation, [place] -Slough/Fibrin Yes -Necrosis Amt Medium (34-66%) Medium (34-66%) -Necrotic Tissue Type Adherent Slough Adherent Slough -Structure Exposed N/A N/A -Texture ([place]len[place]-wound Skin Appearance) Assessed Assessed -Moisture ([place]-wound Skin Appearance) Assessed Assessed -Color ([place]-wound Skin Appearance) Hemosiderin Assessed Staining -Temperature ([place]-wound Skin No Abnormality No Abnormality Appearance) (Pt Warm) (Pt Warm) -Tenderness on Palpation ([place]-wound No No Skin Appearance) -Ulcer Cleansing Wound Cleanser Wound Cleanser -Foul Odor after Cleansing No No -Anesthetic Used 5% Lidocaine 5% Lidocaine Gel Gel Left Calf (cm) 33.5 Left Ankle (cm) 19.5 WC - Nurse 2 - General Ulcer CM Notes Start: 09/28/23 13:40 Freq: Status: Active Protocol: Activity Type Activity Date Activity User E-sign Co-sign Detail Recorded Client Recorded Date Recorded By Document 09/28/23 14:04 DS 1 09/28/23 14:06 DS Document 10/12/23 14:04 JF [id number] 10/12/23 14:09 JF 09/28/23 10/12/23 14:04 14:04 Wound Center Nurse 2 #1 LT MED ANKLE -Time 14:05 14:07 -Correct Patient Yes Yes -Correct Side, Site, Position Yes Yes -Correct Procedure Yes Yes -Procedure Performed Yes Yes -Type of Procedure Debridement Debridement -Clinical Debridement Subcutaneous Subcutaneous -Tissue Removed Subcutaneous Subcutaneous -Post Debridement (cm) - Length 0.6 0.5 -Post Debridement (cm) - Width 0.3 0.5 -Post Debridement (cm) - Depth 0.1 0.1 -Total Square (Post) (cm) 0.18 0.25 -Area of Debridement (cm) - Length 0.6 0.5 -Area of Debridement (cm) - Width 0.3 0.5 -Total Square (Area) (cm) 0.18 0.25 -Tunneling No No -Undermining/Tunneling No No -Circular Undermining No No -Wound/Ulcer Outcome Not Healed Not Healed -Ulcer Cleansing Rinsed/ Irrigated with Saline -Foul Odor after Cleansing No -Bioengineered Tissue No -Bleeding Controlled with Pressure Pressure -Treatment Response Procedure Procedure Tolerated Well Tolerated Well -Offloading No -Debridement - Subq, 1st 20sq cm Yes Yes Pain Scale: 0-10 Numeric Is Patient Pain Free? No Yes left lower leg -Description Sharp -Intensity 6 -Duration (hours) Acute -Pain Behavior Guarding, Grasping Site -Pain Aggravating Factors Debridement -Alleviating Factors/Interventions Will continue to monitor, Emotional Support WC - Nurse 3 - General Ulcer D/C NN Start: 09/28/23 13:40 Freq: Status: Active Protocol: Activity Type Activity Date Activity User E-sign Co-sign Detail Recorded Client Recorded Date Recorded By Document 09/28/23 14:44 KW 09/28/23 14:50 KW Document 10/12/23 14:21 RB [id number] 10/12/23 14:22 RB 09/28/23 10/12/23 14:44 14:21 Wound Care Center Nurse 3 #1 LT MED ANKLE -Ulcer Cleansing Rinsed/ Irrigated with Saline -Other Dressing HYDROGEL hydrogel -Primary Dressing Covered/Secured with Dry Gauze & Dry Gauze & Roll Gauze, Roll Gauze, Secured with Secured with Tape Tape -Other Covering coban Treatment Response Procedure Tolerated Well Pain Scale: 0-10 Numeric Is Patient Pain Free? Yes Yes WC - Visit Discharge Discharge Condition Stable Ambulatory Status Ambulatory Transportation Private Auto Medication Reconcilliation completed & No provided to patient/care provider Clinical Summary of Care Provided Yes Assessment/Plan Assessment/Plan (1) Venous stasis ulcer of ankle with fat layer exposed without varicose veins: CODE(S): I87.2 - Venous insufficiency (chronic) (peripheral); L97.302 - Non-pressure chronic ulcer of unspecified ankle with fat layer exposed QUALIFIERS: Laterality: left Qualified Code(s): I87.2 - Venous insufficiency (chronic) (peripheral); L97.322 - Non-pressure chronic ulcer of left ankle with fat layer exposed (2) Chronic venous insufficiency of lower extremity: CODE(S): I87.2 - Venous insufficiency (chronic) (peripheral) (3) Mejia phlebectatica paraplantaris: CODE(S): R09.89 - Other specified symptoms and signs involving the circulatory and respiratory systems (4) Hyperpigmentation: CODE(S): L81.9 - Disorder of pigmentation, unspecified (5) Cardiac arrhythmia: CODE(S): I49.9 - Cardiac arrhythmia, unspecified (6) History of repair of hiatal hernia: CODE(S): Z98.890 - Other specified postprocedural states; Z87.19 - Personal history of other diseases of the digestive system (7) History of total left knee replacement: CODE(S): Z96.652 - Presence of left artificial knee joint (8) History of cataract surgery: CODE(S): Z98.49 - Cataract extraction status, unspecified eye (9) SVT (supraventricular tachycardia): CODE(S): I47.10 - Supraventricular tachycardia, unspecified (10) Prediabetes: CODE(S): R73.03 - Prediabetes PLAN: Plan This is a 68-year-old female who presented with an ulceration near the left medial malleolus, located in the supra-malleolar area. The ulceration had been present for approximately 5 months. By history and appearances, the ulceration appears to be due to chronic venous disease. The ulceration is associated with nearby stigmata of chronic venous disease. A lengthy discussion has been undertaken with the patient as to the appropriate means of conservative care. The patient has been advised to elevate her lower extremities as much as possible, during both nighttime and daytime hours. Elevation is to be to heart level, or higher. She is to continue sleeping on a flat mattress at night. Activity has been encouraged. Prolonged, idle sitting has been discouraged. Despite the advisement to elevate her lower extremities and to use compression on her lower extremities, it appears as though the patient has been only moderately compliant. Once again, these recommendations have been reiterated. The patient's weight appears to be appropriate. The ulceration appears to be decreasing in size. A prescription was previously issued, and the patient has now obtained graduated compression stockings of 20 to 30 mmHg compression, knee-high length, and has been advised to wear on a daily basis. We are to continue the use of collagen hydrogel topically to the ulceration in the distal left lower extremity. The collagen hydrogel is to be applied topically on a daily basis. The patient has been instructed in the appropriate means of application. The patient has reminded to maintain a diet of adequate nutrition. A venous duplex examination was performed on September 24, 2023, which revealed the following: The left popliteal vein is incompetent; the right great saphenous vein is incompetent below the knee; the left great saphenous vein is incompetent below the knee; small saphenous veins are incompetent bilaterally; accessory saphenous veins in the left proximal calf and the left mid calf are incompetent. The patient has had recent blood work on September 14, 2023, at the [facility], with results as follows: Protein 7.2, albumin 4.3, calcium 9.9, bilirubin 0.3, alkaline phosphatase 61, AST 30, ALT 18, glucose 99, BUN 20, creatinine 0.72, sodium 141, potassium 4.4, chloride 104, white blood count 7.71, hemoglobin 14.2, hematocrit 43.1, platelets 266,000, hemoglobin A1c 5.4, cholesterol 168, triglycerides 105. The patient is to return in 1 week for reevaluation. Total time: 24 minutes
--- NOTE | 2023-10-14 13:46 | WC ---
PHOTO 10/12/23 LEFT [facility] ANKLE
[2023-10-19 13:59] VITALS: BP 138/57; PULSE 70; RESP 18; TEMP 36.6; BMI 30.2
--- NOTE | 2023-10-19 14:23 | HP.PCM_ITS ---
History of Present Illness Date of Service: 10/19/23 Chief Complaint: Open ulceration of the left medial supra-malleolar area History of Wound: This is a 68-year-old female who presented with an ulceration of the left medial supra-malleolar area. The ulceration had been present since April 12, 2023. The ulceration occurred spontaneously, with no history of trauma. The patient has not previously had an ulceration at this site in the past. She was seen and evaluated by [facility], where an Unna boot was placed for a total of 1 week. When no significant improvement was appreciated, the patient was referred to the [facility] for further evaluation and management. The patient denies a history of deep vein thrombosis, though has a history of pulmonary embolism in 2017. She was treated by means of systemic anticoagulation at that time, though is not currently anticoagulated. The patient is not active, though she is ambulatory. She spends a good portion of each day sitting idlely. She claims to sleep on a flat mattress at night. The patient is of relatively normal body habitus, with a BMI of 30.2. The patient denied a history of diabetes mellitus, congestive heart failure, myocardial infarction, cerebrovascular accident, pu lmonary disease, renal disease, and thyroid disease. [facility] Medical History Prediabetes SVT (supraventricular tachycardia) Chronic venous insufficiency of lower extremity Venous stasis ulcer of ankle with fat layer exposed without varicose veins Mejia phlebectatica paraplantaris Hyperpigmentation Cardiac arrhythmia Home Medications ?Medication ?Instructions ?Recorded ?Last Taken ?Type metoprolol tartrate 25 mg tablet 25 mg PO BID 09/07/23 Unknown History multivit with min-folic acid PO 09/07/23 Unknown History Allergy/AdvReac Type Severity Reaction Status Date / Time povidone-iodine (From Allergy Other Verified 09/07/23 13:03 Betadine) Sulfa (Sulfonamide Allergy Other Verified 09/07/23 13:03 Antibiotics) Surgical History History of cataract surgery History of total left knee replacement History of repair of hiatal hernia Social History Smoking Status: Never smoker Vital Signs Vital Signs Vital Signs: 10/19/23 13:59 Temperature 97.8 F Temperature Source Temporal Pulse Rate 70 Respiratory Rate 18 Blood Pressure 138/57 H Blood Pressure Mean 84 Blood Pressure Source Monitor Blood Pressure Position Semi-Fowlers Blood Pressure Location Left Arm Weight Weight: 165 lb Body Mass Index (BMI) 30.2 Physical Exam Const alert, oriented x3, no apparent distress, average body habitus, no limitations and well nourished Constitutional Narrative: The patient's BMI is 30.2 General Appearance: cooperative, comfortable, well kempt and well developed Orientation / Consciousness: awake, oriented to person, oriented to place and oriented to time HEENT normocephalic and head/scalp atraumatic Head and Scalp: normal to inspection, normocephalic and atraumatic Face and Sinus: normal facial exam Nose: external nose normal External Ear: external ears normal Eyes EOMs intact bilaterally and conjunctivae normal General Eye: normal appearance of both eyes Neck full ROM Resp normal respiratory effort, normal air movement, no retractions and no use of accessory muscles Effort and Inspection: able to speak in complete sentences Extremity no calf tenderness General Extremity: Negative for clubbing or cyanosis Skin Wound Narrative: An ulceration is noted in the left medial malleolar area. The ulceration is full-thickness in nature, with extension into the subcutaneous tissue. There is no sign of infection or cellulitis. The ulceration is smaller in size, and dimensions are documented elsewhere. The ulcer bed demonstrates pink and healthy granulation tissue, though with a small amount of bioburden. Hemosiderin staining and lipodermatosclerosis surround the ulceration and are noted bilaterally in the medial malleolar areas. Mejia phlebectatica is noted bilaterally as well at ankle level. No significant swelling is noted. Neuro oriented x3, CN's II-XII intact bilaterally, moves all extremities, no focal motor deficits and no sensory deficits noted Sensorium / Orientation: awake, alert, oriented to person, oriented to place, oriented to time and orientation impaired Psych Appearance: grossly normal and appropriate Attitude: calm Activity / Motor Behavior: appropriate eye contact Speech: normal speech Mood & Affect: euthymic mood Thought Process: normal thought process Thought Content: normal thought content Attention / Concentration: attention grossly intact Debridement Note Debridement Note Wound debrided: Left medial malleolar ulceration Laterality: Left Type of Debridement: Excisional debridement Anesthesia Used: 5% Lidocaine Gel and Cetacaine Depth: Down to and including healthy tissue and in the subcutaneous layer Percentage of wound debrided: 100 Instrument Used: 3mm curette Tissue Removed: Bioburden and nonviable tissue Severity: Fat Layer Exposed Amount of bleeding with debridement: Mild Bleeding Controlled with: Compression and gauze Patient tolerated procedure: Patient tolerated procedure well Post-Debridement Measurements and Additional Note: Post-Debridement Measurements/Treatment - Nurse 1 - General Ulcer Assessment Start: 09/28/23 13:40 Freq: Status: Active Protocol: [employer] Activity Type Activity Date Activity User E-sign Co-sign Detail Recorded Client Recorded Date Recorded By Document 09/28/23 13:40 RB [email or web address] 09/28/23 13:42 RB Document 10/12/23 13:49 KW [id number] 10/12/23 13:56 KW Document 10/19/23 13:59 KW [id number] 10/19/23 14:04 KW 09/28/23 10/12/23 10/19/23 13:40 13:49 13:59 - Today's Visit Information Type of service Follow-up Visit Follow-up Visit Follow-up Visit (Physician/ASSISTANT CLINICAL NURSE MANAGER (Physician/ASSISTANT CLINICAL NURSE MANAGER (Physician/ASSISTANT CLINICAL NURSE MANAGER ) ) ) Arrival Mode Ambulatory Ambulatory Ambulatory Transfer Assistance None None None Patient Identification Verified (Name & Yes Yes Yes ) Patient Requires Transmission-Based No No No Precautions Height and Weight Body Mass Index (BMI) 30.2 30.2 30.2 BMI Classification Obese Obese Obese Vital Signs Temperature (97.8 F-99.1 F) 97.2 F L 97.3 F L 97.8 F Temperature Source Temporal Temporal Temporal Pulse Rate (60-100) 67 72 70 Pulse Location Monitor Monitor Monitor Respiratory Rate (12-18) 18 18 18 Respiratory rate source Observation Observation Observation Blood Pressure (90/60-120/80) 143/61 H 146/61 H 138/57 H Blood Pressure Mean 88 89 84 Source Monitor Monitor Monitor Position Semi-Fowlers Semi-Fowlers Semi-Fowlers Blood Pressure Location Left Arm Left Arm Left Arm History Since Last Visit- (Skip if this is Patient's initial visit) Have you changed medications since your No No No last visit? Any new allergies or adverse reactions No No No Had a fall/change in ADL's that may No No No increase risk of falls Signs or symptoms of abuse and/or No No No neglect since last visit Have you been in the hospital since your No No No last visit? Has dressing in place as prescribed Yes Yes Yes Has compression in place as prescribed Yes No No Has offloadiing in place as prescribed No No No Experienced any changes in pain level or No No No management Pain Scale: 0-10 Numeric Is Patient Pain Free? Yes Yes No left lower leg -Description Aching Burning -Intensity 6 3 -Duration (hours) Chronic Acute -Pain Behavior Guarding Withdrawal from Touch -Pain Aggravating Factors Exercise/ Exercise/ Activity Activity -Alleviating Factors/Interventions None Medication -Effectiveness of Alleviating Factor/ Minimally Intervention effective WC - Nurse 1 - General Ulcer Measurement Start: 09/28/23 13:40 Freq: Status: Active Protocol: Activity Type Activity Date Activity User E-sign Co-sign Detail Recorded Client Recorded Date Recorded By Document 09/28/23 13:40 RB [email or web address] 09/28/23 13:42 RB Document 10/12/23 13:49 KW [id number] 10/12/23 13:56 KW Document 10/19/23 13:59 KW [id number] 10/19/23 14:04 KW 09/28/23 10/12/23 10/19/23 13:40 13:49 13:59 Wound Center Nurse 1 #1 LT MED ANKLE -Combined with other wound No No No -Current Size (cm) - Length 0.5 0.2 0.1 -Current Size (cm) - Width 0.3 0.2 0.1 -Current Size (cm) - Depth 0.1 0.1 0.1 -Total Square Cm 0.15 0.04 0.01 -Photo Taken Yes -Tunneling No No No -Undermining/Tunneling No No No -Circular Undermining No No No -Exudate Amt Small Medium Small -Exudate Type Serosanguineous Serosanguineous Serosanguineous -Wound Margin Distinct, Distinct, Distinct, Outline Outline Outline Attached Attached Attached -Granulation Amt Medium (34-66%) Medium (34-66%) Medium (34-66%) -Granulation Quality Wyldwood Hyper- [place]wood granulation, [place] -Slough/Fibrin Yes Yes -Necrosis Amt Medium (34-66%) Medium (34-66%) Medium (34-66%) -Necrotic Tissue Type Adherent Slough Adherent Slough Adherent Slough -Structure Exposed N/A N/A N/A -Texture (Glenys-wound Skin Appearance) Assessed Assessed Assessed -Moisture (Glenys-wound Skin Appearance) Assessed Assessed Assessed -Color (Glenys-wound Skin Appearance) Hemosiderin Assessed Assessed Staining -Temperature (Glenys-wound Skin No Abnormality No Abnormality No Abnormality Appearance) (Pt Warm) (Pt Warm) (Pt Warm) -Tenderness on Palpation (Glenys-wound No No No Skin Appearance) -Ulcer Cleansing Wound Cleanser Wound Cleanser Wound Cleanser -Foul Odor after Cleansing No No No -Anesthetic Used 5% Lidocaine 5% Lidocaine 5% Lidocaine Gel Gel Gel Lower Limb Edema Present Yes Left Calf (cm) 33.5 35 Left Ankle (cm) 19.5 19.5 WC - Nurse 2 - General Ulcer CM Notes Start: 09/28/23 13:40 Freq: Status: Active Protocol: Activity Type Activity Date Activity User E-sign Co-sign Detail Recorded Client Recorded Date Recorded By Document 09/28/23 14:04 DS 1 09/28/23 14:06 Document 10/12/23 14:04 [id number] 10/12/23 14:09 Document 10/19/23 14:11 DS [id number] 10/19/23 14:14 09/28/23 10/12/23 10/19/23 14:04 14:04 14:11 Wound Center Nurse 2 #1 LT MED ANKLE -Time 14:05 14:07 14:11 -Correct Patient Yes Yes Yes -Correct Side, Site, Position Yes Yes Yes -Correct Procedure Yes Yes Yes -Procedure Performed Yes Yes Yes -Type of Procedure Debridement Debridement Debridement -Clinical Debridement Subcutaneous Subcutaneous Subcutaneous -Tissue Removed Subcutaneous Subcutaneous Subcutaneous -Post Debridement (cm) - Length 0.6 0.5 0.4 -Post Debridement (cm) - Width 0.3 0.5 0.3 -Post Debridement (cm) - Depth 0.1 0.1 0.1 -Total Square (Post) (cm) 0.18 0.25 0.12 -Area of Debridement (cm) - Length 0.6 0.5 0.4 -Area of Debridement (cm) - Width 0.3 0.5 0.3 -Total Square (Area) (cm) 0.18 0.25 0.12 -Tunneling No No No -Undermining/Tunneling No No No -Circular Undermining No No No -Wound/Ulcer Outcome Not Healed Not Healed Not Healed -Ulcer Cleansing Rinsed/ Irrigated with Saline -Foul Odor after Cleansing No -Bioengineered Tissue No -Bleeding Controlled with Pressure Pressure Pressure -Treatment Response Procedure Procedure Procedure Tolerated Well Tolerated Well Tolerated Well -Offloading No -Debridement - Subq, 1st 20sq cm Yes Yes Yes Pain Scale: 0-10 Numeric Is Patient Pain Free? No Yes No left lower leg -Description Sharp Sharp,Throbbing -Intensity 6 7 -Duration (hours) Acute Acute -Pain Behavior Guarding, Guarding, Grasping Site Irritability -Pain Aggravating Factors Debridement Debridement -Alleviating Factors/Interventions Will continue Medication,Will to monitor, continue to Emotional monitor, Support Emotional Support - Nurse 3 - General Ulcer D/C NN Start: 09/28/23 13:40 Freq: Status: Active Protocol: Activity Type Activity Date Activity User E-sign Co-sign Detail Recorded Client Recorded Date Recorded By Document 09/28/23 14:[address] [facility] 09/28/23 14:50 Document 10/12/23 14:21 RB [id number] 10/12/23 14:22 RB 09/28/23 10/12/23 14:44 14:21 Wound Care Center Nurse 3 #1 LT MED ANKLE -Ulcer Cleansing Rinsed/ Irrigated with Saline -Other Dressing HYDROGEL hydrogel -Primary Dressing Covered/Secured with Dry Gauze & Dry Gauze & Roll Gauze, Roll Gauze, Secured with Secured with Tape Tape -Other Covering coban Treatment Response Procedure Tolerated Well Pain Scale: 0-10 Numeric Is Patient Pain Free? Yes Yes - Visit Discharge Discharge Condition Stable Ambulatory Status Ambulatory Transportation Private Auto Medication Reconcilliation completed & No provided to patient/care provider Clinical Summary of Care Provided Yes Charges/Coding Procedures Integumentary [id number]: [id number] Leyda subq tissue 20 sq cm/< Assessment/Plan Assessment/Plan (1) Venous stasis ulcer of ankle with fat layer exposed without varicose veins: CODE(S): I87.2 - Venous insufficiency (chronic) (peripheral); L97.302 - Non-pressure chronic ulcer of unspecified ankle with fat layer exposed QUALIFIERS: Laterality: left Qualified Code(s): I87.2 - Venous insufficiency (chronic) (peripheral); L97.322 - Non-pressure chronic ulcer of left ankle with fat layer exposed (2) Chronic venous insufficiency of lower extremity: CODE(S): I87.2 - Venous insufficiency (chronic) (peripheral) (3) Mejia phlebectatica paraplantaris: CODE(S): R09.89 - Other specified symptoms and signs involving the circulatory and respiratory systems (4) Hyperpigmentation: CODE(S): L81.9 - Disorder of pigmentation, unspecified (5) Cardiac arrhythmia: CODE(S): I49.9 - Cardiac arrhythmia, unspecified (6) History of repair of hiatal hernia: CODE(S): Z98.890 - Other specified postprocedural states; Z87.19 - Personal history of other diseases of the digestive system (7) History of total left knee replacement: CODE(S): Z96.652 - Presence of left artificial knee joint (8) History of cataract surgery: CODE(S): Z98.49 - Cataract extraction status, unspecified eye (9) SVT (supraventricular tachycardia): CODE(S): I47.10 - Supraventricular tachycardia, unspecified (10) Prediabetes: CODE(S): R73.03 - Prediabetes PLAN: Plan This is a 68-year-old female who presented with an ulceration near the left medial malleolus. The ulceration had been present for approximately 5 months. By history and appearances, the ulceration appears to be due to chronic venous disease. The ulceration is associated with nearby stigmata of chronic venous disease. A lengthy discussion has been undertaken with the patient as to the appropriate means of conservative care. The patient has been advised to elevate her lower extremities as much as possible, during both nighttime and daytime hours. Elevation is to be to heart level, or higher. She is to continue sleeping on a flat mattress at night. Activity has been encouraged. Prolonged, idle sitting has been discouraged. Despite the advisement to elevate her lower extremities and to use compression on her lower extremities, it appears as though the patient has been only moderately compliant. Once again, these recommendations have been reiterated. The patient's weight appears to be appropriate. The ulceration appears to be decreasing in size. A prescription was previously issued, and the patient has now obtained graduated compression stockings of 20 to 30 mmHg compression, knee-high length, and has been advised to wear on a daily basis. We are to continue the use of collagen hydrogel and Adaptic topically to the ulceration in the distal left lower extremity. The collagen hydrogel is to be applied topically on a daily basis. The patient has been instructed in the appropriate means of application. The patient has reminded to maintain a diet of adequate nutrition. A venous duplex examination was performed on September 24, 2023, which revealed the following: The left popliteal vein is incompetent; the right great saphenous vein is incompetent below the knee; the left great saphenous vein is incompetent below the knee; small saphenous veins are incompetent bilaterally; accessory saphenous veins in the left proximal calf and the left mid calf are incompetent. The patient has had recent blood work on September 14, 2023, at the [facility], with results as follows: Protein 7.2, albumin 4.3, calcium 9.9, bilirubin 0.3, alkaline phosphatase 61, AST 30, ALT 18, glucose 99, BUN 20, creatinine 0.72, sodium 141, potassium 4.4, chloride 104, white blood count 7.71, hemoglobin 14.2, hematocrit 43.1, platelets 266,000, hemoglobin A1c 5.4, cholesterol 168, triglycerides 105. The patient is to return in 2 weeks for reevaluation. She appears to be doing well, her ulceration is decreasing in size, and the patient has expressed a dislike for the serial debridements which have been performed routinely. Total time: 25 minutes
== END 2023-10-23 23:59 | disposition home or self-care (01) ==
LOC: WC 14:00
PROVIDERS: PCP Family Medicine; Referring Provider Dermatology Pediatric Dermatology; Visit Provider Surgery
DX: I87.2 Venous insufficiency (chronic) (peripheral) (principal); L97.322 Non-pressure chronic ulcer of left ankle with fat layer exposed; I47.10 Supraventricular tachycardia, unspecified; R73.03 Prediabetes; R09.89 Other specified symptoms and signs involving the circulatory and respiratory systems; I49.9 Cardiac arrhythmia, unspecified; L81.9 Disorder of pigmentation, unspecified; Z87.891 Personal history of nicotine dependence; R60.0 Localized edema
CPT/HCPCS: 11042; 93970

== ENCOUNTER 2023-11-02 13:29 | Outpatient (RCR) | payer MEDICARE, OTHER, SELFPAY ==
[2023-10-24 00:52] VITALS: BP 134/60; PULSE 66; RESP 18; TEMP 35.8; BMI 30.2
[2023-11-02 13:32] VITALS: BP 155/49; PULSE 71; RESP 14; TEMP 36.3; BMI 30.2
--- NOTE | 2023-11-02 17:39 | HP.PCM_ITS ---
History of Present Illness Date of Service: 11/02/23 Chief Complaint: Open ulceration of the left medial supra-malleolar area History of Wound: This is a 68-year-old female who presented with an ulceration of the left medial supra-malleolar area. The ulceration had been present since April 12, 2023. The ulceration occurred spontaneously, with no history of trauma. The patient has not previously had an ulceration at this site in the past. She was seen and evaluated by [facility], where an Unna boot was placed for a total of 1 week. When no significant improvement was appreciated, the patient was referred to the [facility] for further evaluation and management. The patient denies a history of deep vein thrombosis, though has a history of pulmonary embolism in 2017. She was treated by means of systemic anticoagulation at that time, though is not currently anticoagulated. The patient is not active, though she is ambulatory. She spends a good portion of each day sitting idlely. She claims to sleep on a flat mattress at night. The patient is of relatively normal body habitus, with a BMI of 30.2. The patient denied a history of diabetes mellitus, congestive heart failure, myocardial infarction, cerebrovascular accident, pu lmonary disease, renal disease, and thyroid disease. [facility] Medical History Prediabetes SVT (supraventricular tachycardia) Chronic venous insufficiency of lower extremity Venous stasis ulcer of ankle with fat layer exposed without varicose veins Mejia phlebectatica paraplantaris Hyperpigmentation Cardiac arrhythmia Home Medications ?Medication ?Instructions ?Recorded ?Last Taken ?Type metoprolol tartrate 25 mg tablet 25 mg PO BID 09/07/23 Unknown History multivit with min-folic acid PO 09/07/23 Unknown History Allergy/AdvReac Type Severity Reaction Status Date / Time povidone-iodine (From Allergy Other Verified 09/07/23 13:03 Betadine) Sulfa (Sulfonamide Allergy Other Verified 09/07/23 13:03 Antibiotics) Surgical History History of cataract surgery History of total left knee replacement History of repair of hiatal hernia Social History Smoking Status: Never smoker Vital Signs Vital Signs Vital Signs: 11/02/23 13:32 Temperature 97.4 F L Temperature Source Temporal Pulse Rate 71 Respiratory Rate 14 Blood Pressure 155/49 H Blood Pressure Mean 84 Blood Pressure Source Monitor Blood Pressure Position Sitting Blood Pressure Location Left Arm Weight Weight: 165 lb Body Mass Index (BMI) 30.2 Debridement Note Debridement Note Post-Debridement Measurements and Additional Note: Post-Debridement Measurements/Treatment WC - Nurse 1 - General Ulcer Assessment Start: 11/02/23 13:32 Freq: Status: Active Protocol: LYNETTE Activity Type Activity Date Activity User E-sign Co-sign Detail Recorded Client Recorded Date Recorded By Document 11/02/23 13:32 ML [id number] 11/02/23 13:39 ML 11/02/23 13:32 WC - Today's Visit Information Type of service Follow-up Visit (Physician/DRUPAL ARCHITECT ) Arrival Mode Ambulatory Transfer Assistance None Patient Identification Verified (Name & Yes ) Patient Requires Transmission-Based No Precautions Height and Weight Body Mass Index (BMI) 30.2 BMI Classification Obese Vital Signs Temperature (97.8 F-99.1 F) 97.4 F L Temperature Source Temporal Pulse Rate (60-100) 71 Pulse Location Monitor Respiratory Rate (12-18) 14 Respiratory rate source Observation Blood Pressure (90/60-120/80) 155/49 H Blood Pressure Mean 84 Source Monitor Position Sitting Blood Pressure Location Left Arm History Since Last Visit- (Skip if this is Patient's initial visit) Have you changed medications since your No last visit? Any new allergies or adverse reactions No Had a fall/change in ADL's that may No increase risk of falls Signs or symptoms of abuse and/or No neglect since last visit Has dressing in place as prescribed Yes Has compression in place as prescribed N/A Has offloadiing in place as prescribed N/A Experienced any changes in pain level or No management Left Footwear Regular Shoe Right Footwear Regular Shoe Pain Scale: 0-10 Numeric Is Patient Pain Free? Yes - Nurse 1 - General Ulcer Measurement Start: 11/02/23 13:32 Freq: Status: Active Protocol: Activity Type Activity Date Activity User E-sign Co-sign Detail Recorded Client Recorded Date Recorded By Document 11/02/23 13:32 ML [id number] 11/02/23 13:39 ML 11/02/23 13:32 Wound Center Nurse 1 #1 LT MED ANKLE -Current Size (cm) - Length 0.1 -Current Size (cm) - Width 0.1 -Current Size (cm) - Depth 0.1 -Total Square Cm 0.01 -Exudate Amt None Present -Slough/Fibrin No -Necrosis Amt None Present (0 %) -Texture (Glenys-wound Skin Appearance) Assessed -Moisture (Glenys-wound Skin Appearance) Assessed -Color (Glenys-wound Skin Appearance) Assessed -Temperature (Glenys-wound Skin No Abnormality Appearance) (Pt Warm) -Tenderness on Palpation (Glenys-wound No Skin Appearance) -Ulcer Cleansing Rinsed/ Irrigated with Saline -Foul Odor after Cleansing No -Anesthetic Used 5% Lidocaine Gel WC - Nurse 2 - General Ulcer CM Notes Start: 11/02/23 13:32 Freq: Status: Active Protocol: Activity Type Activity Date Activity User E-sign Co-sign Detail Recorded Client Recorded Date Recorded By Document 11/02/23 14:01 PAU [id number] 11/02/23 14:02 PAU 11/02/23 14:01 Wound Center Nurse 2 -Time 14:01 -Procedure Performed No -Wound/Ulcer Outcome Healed- Epithelialized Pain Scale: 0-10 Numeric Is Patient Pain Free? Yes
--- NOTE | 2023-11-03 08:21 | WC ---
PHOTO 11/02/23 JUNE
--- NOTE | 2023-11-03 18:04 | PCM.WC.HP ---
History of Present Illness Date of Service: 11/02/23 Chief Complaint: Open ulceration of the left medial supra-malleolar area History of Wound: This is a 68-year-old female who presented with an ulceration of the left medial supra-malleolar area. The ulceration had been present since April 12, 2023. The ulceration occurred spontaneously, with no history of trauma. The patient has not previously had an ulceration at this site in the past. She was seen and evaluated by [facility], where an Unna boot was placed for a total of 1 week. When no significant improvement was appreciated, the patient was referred to the [facility] for further evaluation and management. The patient denies a history of deep vein thrombosis, though has a history of pulmonary embolism in 2017. She was treated by means of systemic anticoagulation at that time, though is not currently anticoagulated. The patient is not active, though she is ambulatory. She spends a good portion of each day sitting idlely. She claims to sleep on a flat mattress at night. The patient is of relatively normal body habitus, with a BMI of 30.2. The patient denied a history of diabetes mellitus, congestive heart failure, myocardial infarction, cerebrovascular accident, pulmonary disease, renal disease, and thyroid disease. [facility] Medical History Prediabetes SVT (supraventricular tachycardia) Chronic venous insufficiency of lower extremity Venous stasis ulcer of ankle with fat layer exposed without varicose veins Mejia phlebectatica paraplantaris Hyperpigmentation Cardiac arrhythmia Home Medications ?Medication ?Instructions ?Recorded ?Last Taken ?Type metoprolol tartrate 25 mg tablet 25 mg PO BID 09/07/23 Unknown History multivit with min-folic acid PO 09/07/23 Unknown History Allergy/AdvReac Type Severity Reaction Status Date / Time povidone-iodine (From Allergy Other Verified 09/07/23 13:03 Betadine) Sulfa (Sulfonamide Allergy Other Verified 09/07/23 13:03 Antibiotics) Surgical History History of cataract surgery History of total left knee replacement History of repair of hiatal hernia Social History Smoking Status: Never smoker Vital Signs Vital Signs Vital Signs: Weight Weight: 165 lb Body Mass Index (BMI) 30.2 Physical Exam Const alert, oriented x3, no apparent distress, average body habitus, no limitations and well nourished Constitutional Narrative: The patient's BMI is 30.2 General Appearance: cooperative, comfortable, well kempt and well developed Orientation / Consciousness: awake, oriented to person, oriented to place and oriented to time HEENT normocephalic and head/scalp atraumatic Head and Scalp: normal to inspection, normocephalic and atraumatic Face and Sinus: normal facial exam Nose: external nose normal External Ear: external ears normal Eyes EOMs intact bilaterally and conjunctivae normal General Eye: normal appearance of both eyes Neck full ROM Resp normal respiratory effort, normal air movement, no retractions and no use of accessory muscles Effort and Inspection: able to speak in complete sentences Extremity no calf tenderness General Extremity: Negative for clubbing or cyanosis Skin Wound Narrative: The ulceration on the left medial supramalleolar area is now completely healed and epithelialized. There is no sign of infection or cellulitis. Hemosiderin staining and lipodermatosclerosis are noted bilaterally in the medial malleolar areas. Mejia phlebectatica is noted bilaterally as well at ankle level. No significant swelling is noted. Neuro oriented x3, CN's II-XII intact bilaterally, moves all extremities, no focal motor deficits and no sensory deficits noted Sensorium / Orientation: awake, alert, oriented to person, oriented to place, oriented to time and orientation impaired Psych Appearance: grossly normal and appropriate Attitude: calm Activity / Motor Behavior: appropriate eye contact Speech: normal speech Mood & Affect: euthymic mood Thought Process: normal thought process Thought Content: normal thought content Attention / Concentration: attention grossly intact Debridement Note Debridement Note No debridement was completed: No debridement was completed today (The patient's ulceration is completely healed and epithelialized.) Charges/Coding Visit Charges Office Visits / Consults: 10223 OV L3 Est 20min Assessment/Plan Assessment/Plan (1) Venous stasis ulcer of ankle with fat layer exposed without varicose veins: CODE(S): I87.2 - Venous insufficiency (chronic) (peripheral); L97.302 - Non-pressure chronic ulcer of unspecified ankle with fat layer exposed QUALIFIERS: Laterality: left Qualified Code(s): I87.2 - Venous insufficiency (chronic) (peripheral); L97.322 - Non-pressure chronic ulcer of left ankle with fat layer exposed (2) Chronic venous insufficiency of lower extremity: CODE(S): I87.2 - Venous insufficiency (chronic) (peripheral) (3) Mejia phlebectatica paraplantaris: CODE(S): R09.89 - Other specified symptoms and signs involving the circulatory and respiratory systems (4) Hyperpigmentation: CODE(S): L81.9 - Disorder of pigmentation, unspecified (5) Cardiac arrhythmia: CODE(S): I49.9 - Cardiac arrhythmia, unspecified (6) History of repair of hiatal hernia: CODE(S): Z98.890 - Other specified postprocedural states; Z87.19 - Personal history of other diseases of the digestive system (7) History of total left knee replacement: CODE(S): Z96.652 - Presence of left artificial knee joint (8) History of cataract surgery: CODE(S): Z98.49 - Cataract extraction status, unspecified eye (9) SVT (supraventricular tachycardia): CODE(S): I47.10 - Supraventricular tachycardia, unspecified (10) Prediabetes: CODE(S): R73.03 - Prediabetes PLAN: Plan This is a 68-year-old female who presented with an ulceration near the left medial malleolus. The ulceration had been present for approximately 5 months. By history and appearances, the ulceration appeared to be due to chronic venous disease. The ulceration was associated with nearby stigmata of chronic venous disease. A lengthy discussion has been undertaken with the patient as to the appropriate means of conservative care. The patient has been advised to elevate her lower extremities as much as possible, during both nighttime and daytime hours. Elevation is to be to heart level, or higher. She is to continue sleeping on a flat mattress at night. Activity has been encouraged. Prolonged, idle sitting has been discouraged. The patient's weight appears to be appropriate. The patient has obtained graduated compression stockings of 20 to 30 mmHg compression, knee-high length, and has been advised to wear on a daily basis. The patient's ulceration is now completely healed and epithelialized. Therefore, we are to discharge the patient today, and she is to follow-up henceforth on an as-needed basis. She has been instructed to continue the conservative measures which have been discussed. Total time: 24 minutes
== END 2023-11-02 15:00 | disposition home or self-care (01) ==
LOC: WC 13:29
PROVIDERS: PCP Family Medicine; Referring Provider Dermatology Pediatric Dermatology; Visit Provider Surgery
DX: I87.2 Venous insufficiency (chronic) (peripheral) (principal); L97.322 Non-pressure chronic ulcer of left ankle with fat layer exposed; R73.03 Prediabetes; I10 Essential (primary) hypertension; Z79.899 Other long term (current) drug therapy; R09.89 Other specified symptoms and signs involving the circulatory and respiratory systems; L81.9 Disorder of pigmentation, unspecified; I47.10 Supraventricular tachycardia, unspecified
CPT/HCPCS: 99212; G0463